=== PATIENT | female | born 1935 | race Caucasian/White ===

== ENCOUNTER 2016-06-24 20:31 | Inpatient (IN) ==
[2016-06-24 21:06] LABS: MANUAL DIFF NEEDED? NO
[2016-06-24 21:13] LABS: BASO% 0.6 % (0.0-0.8); EOS# 0.15 X1000 (0.0-0.7); EOS% 2.3 % (0.0-10.0); HEMATOCRIT 28.4 % (37.0-47.0); HEMOGLOBIN 9.3 g/dL (12.0-16.0); IMM GRAN# 0.02 X1000 (0.0-0.04); IMM GRAN% 0.3 % (0.0-0.5); LYMPH# 2.14 X1000 (1.2-3.4); LYMPH% 33.1 % (20.5-51.1); MCH 31.5 PG (27-31); MCHC 32.7 g/dL (33-37); MCV 96.3 FL (81-99); MONO# 0.55 X1000 (0.11-0.59); MONO% 8.5 % (1.7-9.3); MPV 13.1 FL (7.4-10.4); NEUT% 55.2 % (42.2-75.2); PLT 209 X1000 (130-400); RBC 2.95 XMIL (4.2-5.4)
[2016-06-24 21:32] LABS: ALBUMIN 3.3 g/dL (3.5-5.0); MAGNESIUM 2.3 mg/dL (1.5-2.7); POTASSIUM 4.2 mmol/L (3.5-5.1); TOTAL BILIRUBIN 0.3 mg/dL (0.20-1.00); TOTAL PROTEIN 6.2 g/dL (6.3-8.3)
[2016-06-25] MEDS ORDERED: NS 1,000 ML IV ONE (00:38)
--- NOTE | 2016-06-25 05:56 | EKG Report ---
Test Performed on : 06/24/2016 8:50:00 PM Test Reason : near syncope Blood Pressure : / mmHG Vent. Rate : 088 BPM Atrial Rate : 088 BPM P-R Int : 150 ms QRS Dur : 108 ms QT Int : 374 ms P-R-T Axes : 060 -57 089 degrees QTc Int : 452 ms Normal sinus rhythm. Left axis deviation Left ventricular hypertrophy with repolarization abnormality Abnormal ECG When compared with ECG of 24-JUN-2015 12:01, No significant change was found Unconfirmed Result
[2016-06-25 07:39] LABS: HEMATOCRIT 24.5 % (37.0-47.0); MCH 31.4 PG (27-31); MCHC 32.7 g/dL (33-37); MCV 96.1 FL (81-99); MPV 12.7 FL (7.4-10.4); RBC 2.55 XMIL (4.2-5.4)
[2016-06-25 07:57] LABS: ALBUMIN 3.1 g/dL (3.5-5.0); CALCIUM 8.6 mg/dL (8.8-10.2); MAGNESIUM 2.1 mg/dL (1.5-2.7); POTASSIUM 5.3 mmol/L (3.5-5.1); TOTAL BILIRUBIN 0.3 mg/dL (0.20-1.00); TOTAL PROTEIN 5.8 g/dL (6.3-8.3)
[2016-06-25] MEDS ORDERED: PROTONIX PO SCH (08:00)
--- NOTE | 2016-06-25 08:24 | HISTORY AND PHYSICAL ---
CHIEF COMPLAINT: Nausea, shortness of breath. HISTORY OF PRESENT ILLNESS: The patient is an 80-year-old female who unfortunately is a very difficult historian. She has a granddaughter in the room who is of little assistance. It appears that Ms. Feliciano has been having increased work of breathing and increased shortness of breath. Denies any cough or congestion. States that she has felt lightheaded, felt as though she was going to pass out. It does not appear that she has had any fevers or chills. She denies any cough, denies any vomiting, but has been nauseated at times. States that she would get short of breath and could not breathe. ALLERGIES: No known drug allergies. MEDICATIONS: Pravachol 80, diltiazem 240, TriCor 145, [place] p.r.n., iron, Synthroid 25, lisinopril 40, Evista 60, vitamin B, doxepin 50 every night at bedtime, Klonopin 1, Protonix 40, Carafate. REVIEW OF SYSTEMS: She has apparently had a history of blood loss, although the chart notes that she has had a workup in the past that could not locate the cause. Therefore, she is on Protonix, Carafate, etc. She has had increased shortness of breath, but denies any fevers or chills. She has had no real cough. She felt as though she was going to pass out, but did not. Denies any recurrent dizziness. Denies any headaches, blurred vision, change in vision. Denies any focalized numbness, tingling, weakness. Denies any GI or issues. PAST MEDICAL HISTORY: Hypertension, hyperlipidemia, COPD, history of kidney disease, history of anemia with no current source, osteoporosis, hypothyroidism, hypertension, high cholesterol. FAMILY HISTORY: Noncontributory. SOCIAL HISTORY: The patient lives at home. She is cared for by her family. She does not smoke or drink. PHYSICAL EXAMINATION: Vital signs: Temperature 97 degrees, pulse 93, respiratory 24, blood pressure 91/51. ASSESSMENT: 1. Acute on chronic renal failure. Serum creatinine 2.1. Her most recent on the chart was 1 to 1.6 in June 2015. 2. Volume depletion with an elevated BUN and creatinine. 3. History of nausea, but no recent emesis. 4. Anemia. Hemoglobin and hematocrit are slightly less after intravenous fluids, down to 8. Uncertain if she is having bleeding. We will continue to Hemoccult her stools. 5. Hypertension. 6. High cholesterol. 7. Syncope. PLAN: We will continue IV fluids, Hemoccult her stools, and continue to follow. Her blood pressures initially when she presented to the ER were 89/50; currently, they are much better after having received IV fluid bolus to 116/67 to 127/58. We will continue IV fluids. We will advance her diet. Restart her home medications. We will hold her current blood pressure medicines until her blood pressures increase. Also, we will hold her lisinopril, as this could be causing her acute renal insufficiency with dehydration. cc: Dylon Bolden MD
--- NOTE | 2016-06-25 09:40 | Diag Imaging Result Document ---
PROCEDURE NAME: XRAY HIP UNILATERAL LT - 06/25/2016 LEFT HIP, 3 VIEWS: COMPARISON: 03/19/2015. FINDINGS: There is no fracture or dislocation identified. There is no other acute abnormality identified. IMPRESSION: No evidence of fracture or dislocation.
--- NOTE | 2016-06-25 09:41 | Diag Imaging Result Document ---
PROCEDURE NAME: XRAY HIP UNILATERAL RT - 06/25/2016 RIGHT HIP, 2 VIEWS: FINDINGS: There is no fracture or dislocation identified. There is no other acute abnormality identified. IMPRESSION: No evidence of fracture or dislocation.
[2016-06-25] MEDS ORDERED: MYLICON PO PRN (17:31)
[2016-06-25] MEDS: NS 1,000 ML IV SCH (18:00)
[2016-06-25] MEDS ORDERED: DUONEB (A & A) INH PRN (18:32)
[2016-06-25] MEDS ORDERED: ZOFRAN IV PRN ×2 (18:32→19:48)
[2016-06-25] MEDS ORDERED: XANAX PO PRN (18:33)
[2016-06-25] MEDS ORDERED: ATIVAN IV ONE (18:36)
[2016-06-25 19:18] LABS: CALCIUM 8.4 mg/dL (8.8-10.2); POTASSIUM 4.5 mmol/L (3.5-5.1)
[2016-06-25 20:41] LABS: OCCULT BLOOD 1 POSITIVE (NEGATIVE)
[2016-06-25] MEDS: PROTONIX IV SCH (20:43)
[2016-06-25] MEDS: SOLU-MEDROL IV SCH (20:43)
[2016-06-25] MEDS: ROCEPHIN 1 GM/NS 1 GM/50 ML IVPB IV SCH (20:43)
[2016-06-25 21:24] LABS: HEMATOCRIT 21.9 % (37.0-47.0); HEMOGLOBIN 7.2 g/dL (12.0-16.0)
[2016-06-25 22:25] LABS: URINE CULTURE PL NEEDED? NO
[2016-06-25 22:44] LABS: BILIRUBIN URINE NEGATIVE (NEGATIVE); BLOOD URINE NEGATIVE (NEGATIVE); CLARITY CLEAR (CLEAR); COLOR YELLOW; GLUCOSE URINE NEGATIVE (NEGATIVE); LEUKOCYTES URINE NEGATIVE (NEGATIVE); NITRITE URINE NEGATIVE (NEGATIVE); PROTEIN URINE NEGATIVE (NEGATIVE); UROBILINOGEN URINE NORMAL
[2016-06-25 22:45] LABS: URINE SOURCE CATH
[2016-06-25 22:46] LABS: URINE EPITHELIAL CELLS <10 /HPF (<10); URINE RBC <10 /HPF (<10); URINE WBC <10 /HPF (<10)
--- NOTE | 2016-06-25 23:41 | Diag Imaging Result Document ---
PROCEDURE NAME: CHEST-1 VIEW - 06/25/2016 SINGLE FRONTAL RADIOGRAPH OF THE CHEST: COMPARISON: 06/24/2015. FINDINGS: Linear scarring at the lung bases is unchanged. No new consolidations identified. Cardiac silhouette is stable. IMPRESSION: Stable chest.
[2016-06-26] MEDS: SOLU-MEDROL IV SCH ×3 (04:45→20:26)
[2016-06-26] MEDS: NS 1,000 ML IV SCH ×2 (06:15→15:21)
[2016-06-26 06:41] LABS: HEMATOCRIT 31.7 % (37.0-47.0); HEMOGLOBIN 10.6 g/dL (12.0-16.0); MCH 30.5 PG (27-31); MCHC 33.4 g/dL (33-37); MCV 91.4 FL (81-99); MPV 12.7 FL (7.4-10.4); RBC 3.47 XMIL (4.2-5.4)
[2016-06-26 06:56] LABS: ALBUMIN 3.1 g/dL (3.5-5.0); CALCIUM 8.4 mg/dL (8.8-10.2); TOTAL BILIRUBIN 0.7 mg/dL (0.20-1.00)
[2016-06-26] MEDS: PROTONIX IV SCH (10:05)
--- NOTE | 2016-06-26 12:02 | PROGRESS NOTE ---
DATE: 06/26/2016 SUBJECTIVE: The patient notes that she is feeling much better this morning. States that she has not had any cough, congestion. Notes that her abdomen is much better this morning. Denies any pain. Denies any blood in her urine or stool. OBJECTIVE: Vital Signs: On physical, temp 98, pulse 106, respiratory 23, BP 150/77, satting 96% on 2 L. General: Patient is awake, alert, oriented. She is currently in no real respiratory distress. She is pleasant to talk with. She is an elderly female who is stable. HEENT: Normocephalic. Neck: Supple. CV: Regular rate. Chest: Clear. Abdomen: Soft. Positive bowel sounds. No masses. Nontender. No hepatosplenomegaly. Extremities: Moves all extremities. Neurologic: No changes. LABS: Hemoglobin and hematocrit 10 and 31 after two units of transfusion; it was 7.2 and 21 prior to this. BUN is still elevated at 54. Creatinine continues to improve with IV fluids down to 1.4. Glucose 121 and albumin 3.1. ASSESSMENT: 1. Hemoccult-positive stool with an acute bleed. Patient's hemoglobin and hematocrit dropped last night with an elevation in her BUN. Creatinine continued to improve. Therefore, we rechecked her hemoglobin and hematocrit again last night and it certainly does appear as though she is having a gastrointestinal bleed. Her Hemoccult was positive. She was therefore transfused 2 units and moved to the intensive care unit. 2. Acute renal failure. Serum creatinine continues to improve from 2.1 down to 1.4. 3. Abdominal pain improved this morning. Computed tomography is pending. 4. Mild protein calorie malnutrition. 5. Volume depletion with noted elevated creatinine, improving with intravenous fluids. 6. Hypertension. 7. Syncope, resolved. 8. High cholesterol. PLAN: As noted above, patient is back to her baseline creatinine of 1.4. She does have chronic renal failure. Her BUN, however, continued to climb and, as noted above, she was noted to have a GI bleed with heme-positive stool. She was typed and crossed, transfused 2 units. Her hemoglobin and hematocrit has remained stable since then. We will check a CT of the abdomen. She certainly will need endoscopy at some point. Currently she is stable. We will continue to follow. Further orders as needed. TIME SPENT: 40 minutes spent in total care. cc: Dylon Bolden MD
--- NOTE | 2016-06-26 12:27 | Diag Imaging Result Document ---
PROCEDURE NAME: ARMAAN ABDOMEN - 06/25/2016 SUPINE RADIOGRAPH OF THE ABDOMEN AND PELVIS, 2 VIEWS: COMPARISON: 01/24/2013. FINDINGS: There are nonspecific bowel gas and stool patterns. There is probably a combination of colonic gas and a few patchy mildly distended loops of small bowel. This is nonspecific. There is nothing that would necessarily indicate obstruction. No definite large volume free abdominal gas is appreciated given the limitations of a supine radiograph. IMPRESSION: Nonspecific abdomen.
--- NOTE | 2016-06-26 14:11 | Diag Imaging Result Document ---
PROCEDURE NAME: CT ABD/PELVIS ORAL CONTR ONLY - 06/26/2016 CT ABDOMEN AND PELVIS WITH ORAL CONTRAST ONLY: COMPARISON: 06/25/2015. FINDINGS: There is a calcified granuloma at the anterior right lung base. There is a stable 9.5 mm noncalcified nodule in the right lower lobe. There is bibasilar mild scarring versus subsegmental atelectasis. There are calcified granulomata in the spleen. The superior dome of the liver is out of the field of view on this study. There has been a previous cholecystectomy. The antrum and pyloric region of the stomach appeared to be somewhat thickened. This could indicate gastritis. It may also be simply due to incomplete distention of the stomach. The course of the small bowel appears to have changed as compared to the previous study. Just before the duodenum crosses the midline, it doubles back to the right side of the abdomen. Although this segment and the adjacent segments of small bowel are not distended, there is distention more distally involving multiple loops of small bowel. The distention is moderate in severity, and there are air-fluid levels. Partial small bowel obstruction should be considered. No significant small bowel wall thickening is identified. The distention may also represent functional ileus. There is a Lazaro catheter in the urinary bladder. The bladder is nondistended. There are a few colonic diverticula, but no evidence of diverticulitis. The colon does not appear to be significantly distended. There is a stable 2 mm left ovarian cyst. The kidneys are essentially unremarkable with no hydronephrosis. There is extensive aortic atherosclerotic calcification with stable infrarenal sub- aneurysmal ectasia. No free abdominal gas is appreciated. No focal inflammatory changes are identified. IMPRESSION: 1. Thickening of the gastric wall involving the antrum and pylorus of the stomach. Consider gastritis. This may also be due to incomplete distention, however. 2. Aberrant course of the duodenum and jejunum not seen on the previous study with a majority of the proximal small bowel on the right side of the abdomen. 3. Several moderately distended loops of small bowel that are nonspecific. Partial obstruction cannot completely be excluded. 4. Other incidental/nonacute findings detailed above. [facility]
[2016-06-26 17:04] LABS: HEMATOCRIT 33.1 % (37.0-47.0); HEMOGLOBIN 11.4 g/dL (12.0-16.0); MCH 31.7 PG (27-31); MCHC 34.4 g/dL (33-37); MCV 91.9 FL (81-99); MPV 12.6 FL (7.4-10.4); RBC 3.6 XMIL (4.2-5.4)
[2016-06-26 17:22] LABS: ALBUMIN 3.5 g/dL (3.5-5.0); CALCIUM 8.4 mg/dL (8.8-10.2); TOTAL BILIRUBIN 0.6 mg/dL (0.20-1.00); TOTAL PROTEIN 6.1 g/dL (6.3-8.3)
[2016-06-26] MEDS: KLONOPIN PO SCH (18:36)
[2016-06-26] MEDS: PROTONIX 80 MG in NS 80 ML IV SCH (19:03)
[2016-06-26] MEDS: ROCEPHIN 1 GM/NS 1 GM/50 ML IVPB IV SCH (20:26)
[2016-06-26] MEDS: CARAFATE LIQUID PO SCH (20:26)
[2016-06-27] MEDS: CARAFATE LIQUID PO SCH ×5 (02:55→21:11)
[2016-06-27] MEDS: SOLU-MEDROL IV SCH ×3 (03:46→21:11)
[2016-06-27] MEDS: PROTONIX 80 MG in NS 80 ML IV SCH ×2 (03:53→14:27)
[2016-06-27 06:53] LABS: ALBUMIN 3.1 g/dL (3.5-5.0); POTASSIUM 4.2 mmol/L (3.5-5.1); TOTAL BILIRUBIN 0.46 mg/dL (0.20-1.00); TOTAL PROTEIN 5.9 g/dL (6.3-8.3)
[2016-06-27 06:55] LABS: HEMATOCRIT 30.5 % (37.0-47.0); HEMOGLOBIN 10.3 g/dL (12.0-16.0); MCH 31.2 PG (27-31); MCHC 33.8 g/dL (33-37); MCV 92.4 FL (81-99); MPV 12.5 FL (7.4-10.4); RBC 3.3 XMIL (4.2-5.4)
[2016-06-27] MEDS: NS 1,000 ML IV SCH ×3 (06:55→18:07)
--- NOTE | 2016-06-27 07:53 | CONSULTATION ---
DATE OF CONSULTATION: 06/27/2016 REASON FOR CONSULTATION: Gastrointestinal bleeding. HISTORY OF PRESENT ILLNESS: An 80-year-old, female, who is a difficult historian, who initially presented with nausea and shortness of breath to [facility]. She has a history of gastrointestinal bleeding and it is found that she also feels lightheaded. She was found to be anemic. It was also found that she had a positive Hemoccult. She had previously been scoped last year, both with upper and lower endoscopy, and found no obvious source so there was concern that she might have a small bowel source. She did have a CT scan that showed potential for small-bowel obstruction on this admission, but no obvious masses were appreciated. GI has been consulted and they have evaluated the patient. Their plan on doing potential upper endoscopy on Tuesday. I was asked to weigh an opinion. The patient does not give me much more information at this time, but overall clinical picture has improved. She was given blood yesterday at [facility]. PAST MEDICAL HISTORY: Includes hypertension, hyperlipidemia, chronic obstructive pulmonary disease, history of chronic kidney disease, history of chronic anemia, history of gastrointestinal bleed, osteoporosis, and hypothyroidism. PAST SURGICAL HISTORY: Includes previous colonoscopies. Endometrial surgery and cholecystectomy. SOCIAL HISTORY: Patient lives at home. Cared for by family. Does not smoke or drink alcohol. FAMILY HISTORY: Reviewed with patient, but noncontributory. REVIEW OF SYSTEMS: A full 10 point review of systems obtained, and is negative unless as specified in history of present illness. ALLERGIES: None. HOME MEDICATIONS: Include Pravachol, diltiazem, TriCor, [place], Synthroid, lisinopril, Evista, vitamin D, doxepin, Klonopin, Protonix, and Carafate. PHYSICAL EXAMINATION: Vital Signs: The patient is currently afebrile. Her vital signs are stable. General Examination: No acute distress. Resting comfortably in bed. HEENT: Normocephalic, atraumatic. Pupils equal, round, reactive to light. Mucous membranes moist. Oropharynx benign. Neck: Supple. Trachea midline. Cardiovascular: Regular rate and rhythm. Lungs: Grossly clear. Abdomen: Soft, nontender, nondistended at this time. Extremities: Moves all extremities well. Neurologic: Grossly intact. Skin: No signs of jaundice. Vascular: All extremities perfused. LABORATORY: Labs from yesterday afternoon white blood cell count is 15, hematocrit is 33, platelet count 151,000. BUN 57, creatinine 1.1. CT scan independently reviewed and radiology report reviewed. ASSESSMENT/PLAN: An 80-year-old, female, with a potential gastrointestinal bleed. Patient has been anemic, although her MCV does not seem to suggest an iron deficiency anemia. She does have a slightly elevated BUN, which could be seen in gastrointestinal bleed. She has Hemoccult stool noted. Given her previous attempts to try to localize the bleed with no success, would still like to repeated esophagogastroduodenoscopy and possible colonoscopy to evaluate for possible source prior to any kind of surgical intervention. Her CT scan does not have any masses noted, but there is concern that she might have a small bowel mass by report from the daughter who is in the room. She did have upper endoscopy last year that showed no obvious masses. We will continue to follow with you and keep the patient resuscitated. If anything changes, may need to consider surgical intervention earlier, but at this time she is not actively bleeding so it would be hard to localize on any further imaging study. cc: Wilfrido Lucas MD MTDD
[2016-06-27] MEDS: KLONOPIN PO SCH (12:22)
--- NOTE | 2016-06-27 14:00 | PROGRESS NOTE ---
DATE: 06/27/2016 SUBJECTIVE: Today Ms. Feliciano refers to be doing a lot better. According to Ms. Feliciano she has been feeling extremely weak and droopy for the past couple days. She thought she was extremely dehydrated. It reached a point where she could not even help herself to walk around and that is the motive of presenting to the emergency department. Initially patient went to [facility], was worked up, found to be anemic and was transferred over here for further medical care. Today she refers to be doing fine. OBJECTIVE: Vital signs: Blood pressure is 208/80, pulse of 87, respirations 18, temperature is 98.0 degrees. General: Ms. Feliciano is an 80-year-old female. She was in bed, did not seem to be in any remarkable distress. HEENT: Mucosa is pink and moist. Anicteric. Acyanotic. Neck: Supple. Chest: Good air entry bilaterally. No crepitations. No rhonchi. Cardiovascular: Regular rate and rhythm. No murmurs, no rubs. No gallops. Abdomen: Soft. Mildly tender in the epigastrium. Bowel sounds are present. Extremities: No pedal edema. [employer]: Patient is awake, alert, oriented x4. There is no focal neurological deficit. LABORATORY DATA: WBC is 13.12, hemoglobin is 10.3, platelet count of 154,000. Chemistry is reviewed. Sodium is 143, potassium is 4.2, chloride is 113, gap of 19, BUN is 46, creatinine is 1.2. Patient Hemoccult is positive. All blood cultures have been negative. The patient is status post 2 PRBC transfusion. ASSESSMENT: 1. Anemia with positive Hemoccult likely due to gastrointestinal bleed. Patient is status post 2 packed red blood cell transfusion. From review of patient records she was actually here in [facility] and discharged just about a year ago so discharged on 06/27/2015 with similar presentation. On that occasion patient had EGD, colonoscopy by Dr. Biswas. The EGD was pretty much unremarkable. However the colonoscopy on 06/25/2015 did reveal dark stool throughout the colon but no lesion was actually found and there was a suspicion of a small bowel bleed so GI has been reconsulted and surgery has been reconsulted. I think patient will definitely need to get EGD and colonoscopy again. If those prove to be negative then will would not have to study the small bowel. Patient hemoglobin and hematocrit this morning is stable. 2. Acute kidney injury. This is improving. 3. Hyperchloremic acidemia. I think this is due to the IV fluids. We will change this to half saline. 4. Uncontrolled hypertension. We will readjust patient medications. 5. Syncope at home likely due to volume depletion and anemia. This is improved. 6. CT scan finding for aberrant course of duodenum and jejunum. Not sure if this is indicative of partial small bowel or it is a congenital abnormality. Will continue to follow this. Surgery has already evaluated the patient. PLAN: So in general I think Ms. Feliciano is relatively stable now. She has a consult to see both surgery and GI. I think she will need to be re-scoped again. If that is negative then will need to look about either video capsule or push enteroscopy or bleeding scan to look for the source of the bleeding the small bowel. cc: Juan Loaiza MD
--- NOTE | 2016-06-27 17:53 | PROGRESS NOTE ---
DATE: 06/27/2016 SUBJECTIVE: Patient is resting in bed. She had 1 dark stool this morning. She denies any nausea, vomiting, abdominal pain. She was able to take some liquid diet this morning. She was seen by Dr. Lucas and our plan is to evaluate her upper GI tract and lower GI tract and she may need exploratory laparotomy versus laparoscopy as there is a question of small bowel partial obstruction which could be linked to her chronic blood-loss anemia. According to the patient she had a video capsule endoscopy done a year ago with Dr. Phelps and it was negative. OBJECTIVE: Vital signs: Temperature 98.4 degrees, pulse rate of 99, respiratory rate 18, blood pressure 157/99, saturating 98% on room air. Body weight of 136 pounds. General: Thinly built, lying in bed, in no acute. HEENT: Pale conjunctivae. No icterus. Neck: Supple. Abdomen: Soft, nontender, nondistended. Bowel sounds noted. No rebound or guarding. Extremities: No cyanosis, clubbing, and edema. Neurologic: She is alert, awake, oriented. LABS: Hemoglobin and hematocrit are 10.3 and 13.5, white count 13.1, platelet count of 154,000, MCV of 92.4. Sodium 142, potassium 4.2, chloride 113, bicarb of 19, anion gap 11, BUN of 46, creatinine 1.1, glucose of 112, calcium is 8, total bilirubin is 0.46, AST 32, ALT 17, alkaline phosphatase 41, total protein 5.9, albumin of 3.1, lactate of 1.1. Stool occult was positive. IMPRESSION AND PLAN: 1. Melena and anemia: Patient is schedule for EGD tomorrow morning. She will be made NPO past midnight. She will continue on PPIs for now. 2. Anemia. Continue to watch and type and cross and transfuse to keep hematocrit more than 25%. 3. Partial small obstruction. Suspect small bowel lesion but at this moment patient is feeling better. We will keep her on clear liquid diet today. Dr. Lucas is on board and if her EGD and GI workup is unrevealing then he may elect to do laparoscopy versus exploratory laparotomy. 4. Hypertension. Being managed the primary team. 5. Syncope at home which is likely secondary to anemia and volume depletion. She is feeling better for now. 6. Above plan of care was discussed with the patient and all questions answered. cc: MD Wilfrido Agosto MD Gregory S. Cheatham, MD Raphael K. Quansah, MD MTDD
[2016-06-27] MEDS: ROCEPHIN 1 GM/NS 1 GM/50 ML IVPB IV SCH (21:11)
[2016-06-28] MEDS: PROTONIX 80 MG in NS 80 ML IV SCH ×4 (01:29→21:50)
[2016-06-28] MEDS: CARAFATE LIQUID PO SCH ×4 (03:01→20:02)
[2016-06-28] MEDS: SOLU-MEDROL IV SCH ×3 (03:28→20:02)
--- NOTE | 2016-06-28 04:07 | CONSULTATION ---
DATE OF CONSULTATION: 06/26/2016 ATTENDING PHYSICIAN: Dr. Bolden. PRIMARY CARE DOCTOR: Dr. Lockett. REASON FOR CONSULTATION: Anemia, small-bowel obstruction. HISTORY OF PRESENT ILLNESS: Ms. Feliciano is an 80-year-old female who was admitted on 06/25/2016 with nausea and shortness of breath. She was diagnosed with pneumonia. She has a known history of COPD. She has quit smoking many years ago per the patient. She also felt lightheaded and was going to pass out. During the hospital admission, she was noted to have volume depletion, dehydration, nausea, acute and chronic renal failure, and dropping hematocrit. She had soft, black, tarry stools noted today and her hematocrit also dropped from 28.4 down to 21.9, and was given 2 units of blood transfusion and the repeat hematocrit went up to 33.1. The patient denies any nausea, vomiting, vomiting blood. She has had an EGD and colonoscopy done in 2016 which showed evidence of possible small bowel bleed. The EGD only showed mild gastritis and the colonoscopy showed dark stool throughout the colon and internal hemorrhoids. The patient denies any gum bleeding, nose bleeding, or blood in the urine. PAST MEDICAL HISTORY: 1. Anemia. 2. GI bleed. 3. Constipation. 4. Reflux disease. 5. Hyperlipidemia. 6. Hypothyroidism. 7. Hypertension. 8. Anxiety. 9. Osteoporosis. 10. Kidney disease. 11. Chronic anemia, on iron. ALLERGIES: No known drug allergies. HOME MEDICATION LIST: Pravachol, diltiazem, TriCor, [place], Synthroid, lisinopril, Evista, vitamin B, doxepin, Klonopin, Protonix, Carafate. PAST SURGICAL HISTORY: EGD and colonoscopy in 2016. SOCIAL HISTORY: Patient lives at home. She is cared for by her family, her granddaughter. She is cared for at home. She denies any history of current smoking or alcohol. FAMILY HISTORY: Noncontributory. REVIEW OF SYSTEMS: The patient denies any fevers, rigors, chills, chest pain, or shortness of breath at this time, although on admission, she was short of breath, and she also had dehydration and near-syncope. She denies any signs of vomiting, vomiting blood, or passing bright red blood in the stools, although on admission, she did have some dark soft stools noted today and a drop in hematocrit. She does have history of arthritis. She denies any neurological complaints today, although on admission, she had a near-syncope. HOSPITAL MEDICATIONS: Her medications in the hospital include Tylenol, albuterol/ipratropium, clonazepam, methylprednisolone 40 mg IV q.8 hours, sodium chloride, Zofran, Protonix IV b.i.d., Protonix drip, simethicone, sucralfate 1 g every 6 hours, lorazepam 0.5 mg IV now. The patient is currently NPO. PHYSICAL EXAMINATION: Vital Signs: Temperature of 97.6 degrees, pulse rate of 107, respiratory rate 18, blood pressure 192/85, saturating 97% on room air. Body weight of 136 pounds, BMI 22 kg. General Appearance: Moderately built, moderately nourished, lying in bed, in no acute distress. HEENT: Pale conjunctivae. No icterus. Pupils equal, react to light. Neck: Supple. Chest: Decreased breath sounds. CV: Tachycardic at times. Abdomen: Soft, nontender , nondistended. Bowel sounds heard. No rebound. No guarding. Extremities: No cyanosis, clubbing. Neurologic: She is alert, awake, oriented x3. LABS: Hemoglobin and hematocrit 11.4 and 33.1, white count of 15.3, platelet count of 151,000, MCV of 91.9. Sodium of 139, potassium of 4, chloride of 100, bicarb of 17, anion gap of 14, BUN of 57, creatinine 1.1, glucose of 113, calcium is 8.4. Total bilirubin is 0.6, AST 36, ALT 18, alkaline phosphatase 44, total protein 6.1, albumin of 3.5, lactate of 0.7. Urinalysis is clear. Stool occult blood is positive. She had imaging in the form of a CT of the abdomen that was done on 06/26/2016 with oral contrast only which showed a stable, 9.5 mm, noncalcified nodule in the right lower base. Bibasilar mild scarring versus subsegmental atelectasis. Calcified granuloma in the spleen. Superior dome of the liver is out of the field of view. Status post cholecystectomy. Antrum and pyloric region of the stomach appear to be somewhat thickened. This could indicate gastritis. The course of small bowel appears to have changed as compared to previous study. Just before the duodenum crosses the midline, it doubles back to the right side of the abdomen. There was also evidence of distal distention in multiple loops of small bowel. The distention is moderate in severity and there are air/fluid levels. Partial small bowel obstruction should be considered. No significant small bowel wall thickening is identified. The distention may also represent possible ileus. There were colonic diverticula but no evidence of diverticulitis. A 2 cm left ovarian cyst was noted. Extensive aortic atherosclerotic calcifications with a stable infrarenal sub-aneurysmal ectasia was noted. No free air was noted. IMPRESSION AND PLAN: 1. Anemia. 2. Melena. 3. Gastritis on CT scan. 4. Questionable partial small obstruction. 5. Previous esophagogastroduodenoscopy and colonoscopy done in June of 2015 had shown gastritis and melena throughout the colon and diverticulosis, and there was suspicion of small bowel bleed at that time even. In the setting of the new CT scan findings of a possibility of moderate distention of distal small bowel loops, I suspect a small bowel partial obstruction maybe by a mass which could be intermittently bleeding and causing her melena. RECOMMENDATIONS: 1. In this regard, we will keep the patient on a clear liquid diet. 2. We will keep an eye on hemoglobin and hematocrit, and type and cross, transfuse to keep the hematocrit more than 27%. 3. We will start her on a Protonix drip. 4. Patient will hold any kind of NSAIDs. 5. We will call consult general surgery in case they have to do a laparoscopy to evaluate the small bowel segment causing partial obstruction which may be the source of patient's small bowel bleed in the recent past. She has been chronically anemic and requiring iron supplementation and blood transfusions, and having intermittent GI bleeding episodes over the last 1 year. 6. We will continue to follow closely and we will schedule for EGD on Tuesday morning or sooner if she continues to drop hematocrit. 7. The above plan was discussed with the patient and the nurse, and all questions were answered. cc: MD Dylon Agosto MD Alexis R. Penot, MD Dr. Reddy MTDD
--- NOTE | 2016-06-28 05:59 | PROGRESS NOTE ---
DATE: 06/28/2016 SUBJECTIVE: No major issues. Reviewed notes from other physicians. OBJECTIVE: Vital Signs: Patient is currently afebrile. Her vital signs are stable. General: No acute distress. Resting comfortably in bed. Cardiovascular: Regular rate and rhythm. Lungs: Grossly clear. Abdomen: Soft, nontender, nondistended. Extremities: Moves all extremities well. LABORATORY: Currently pending from this morning. ASSESSMENT/PLAN: An 80-year-old female with possible gastrointestinal bleed. 1. Possible gastrointestinal bleed. At this time Gastroenterology is following. She has a plan for an esophagogastroduodenoscopy in the morning. At this time no exact etiology noted for her gastrointestinal bleed. May recommend doing colonoscopy if esophagogastroduodenoscopy is normal. If both tests are normal, may need to consider exploratory laparotomy, but will follow with you. Other medical issues to be handled by the hospitalist service. cc: Wilfrido Lucas MD
[2016-06-28 06:41] LABS: POTASSIUM 3.9 mmol/L (3.5-5.1)
[2016-06-28 06:42] LABS: HEMATOCRIT 30.7 % (37.0-47.0); HEMOGLOBIN 10.3 g/dL (12.0-16.0); LYMPH# 0.56 X1000 (1.2-3.4); LYMPH% 5.4 % (20.5-51.1); MANUAL DIFF NEEDED? YES; MCH 31.3 PG (27-31); MCHC 33.6 g/dL (33-37); MCV 93.3 FL (81-99); MONO# 0.22 X1000 (0.11-0.59); MONO% 2.1 % (1.7-9.3); MPV 13.1 FL (7.4-10.4); NEUT% 92.5 % (42.2-75.2); PLT 166 X1000 (130-400); RBC 3.29 XMIL (4.2-5.4)
[2016-06-28 07:57] LABS: LYMPHS 4 % (21-51); MONO 2 % (1-9)
[2016-06-28 07:59] LABS: HYPOCHROM 1+
[2016-06-28] MEDS ORDERED: EPINEPHRINE SYRINGE ONE (08:44)
[2016-06-28] MEDS ORDERED: DIPRIVAN 1% ONE (08:54)
[2016-06-28] MEDS ORDERED: EXTENSION SET 32 IN 4522 ONE (09:20)
[2016-06-28] MEDS ORDERED: ANESTHESIA PB SET 88 IN 5742 ONE (09:20)
[2016-06-28] MEDS: KLONOPIN PO SCH (10:01)
[2016-06-28] MEDS: D5 1/2 NS 1,000 ML IV SCH (10:06)
[2016-06-28] MEDS ORDERED: GOLYTELY PO ONE (12:00)
--- NOTE | 2016-06-28 16:29 | OPERATIVE NOTE ---
PROCEDURE DATE: 06/28/2016 ATTENDING PHYSICIAN: Jacob Vail MD PROCEDURE: Esophagogastroscopy. PREOPERATIVE DIAGNOSES: 1. Melena, which started about a week ago, soft black stools. 2. Anemia required 2 units of blood transfused. 3. She has history of chronic anemia on chronic iron treatment. 4. Previous esophagogastroduodenoscopy/colonoscopy in 2016, showed no source of active bleeding, and at that time was thought to be a small bowel source and on this admission , she presented very similarly with presyncope and melena. A CT scan showed a possibility of partial small obstruction with possible lesion in the small bowel, which is being evaluated by Dr. Lucas. POSTOPERATIVE DIAGNOSES: 1. Normal esophagus in the proximal and middle third. 2. Mild esophagitis in the distal esophagus. 3. Z-line was at 37 cm. 4. Schatzki's ring at the gastroesophageal junction. 5. Hiatal hernia 3 cm. 6. Gastritis in the body and antrum, mild type. 7. Normal fundus, cardia, incisura. 8. Normal duodenal bulb and second and third portion of duodenum. 9. No evidence of active bleeding, fresh or old blood in the entire esophagogastroduodenoscopy. ESTIMATED BLOOD LOSS: None. COMPLICATIONS: None. ANESTHESIA: Monitored anesthesia care. SPECIMEN: None. DESCRIPTION OF PROCEDURE: After informed consent, the patient explained the risks, benefits, indications, alternatives, the patient was prepared for EGD. The patient was brought to the OR. She was turned in the left lateral position. A bite block was placed in patient 's mouth. After adequate monitored anesthesia care, the upper scope was introduced, it was traversed all the way to the third portion of duodenum. The esophagus was normal. The proximal middle 3rd distal esophagus showed mild erythema suggesting mild esophagitis. The Z line was visualized at 37 cm. There was evidence of a Schatzki ring, nonobstructive type at the GE junction. There was evidence of 3 cm sliding hiatal hernia. There was no evidence of any bleeding lesion in the hiatal sac. The scope was withdrawn in the stomach showed evidence of mild erythema in the body and antrum suggesting mild gastritis. There was no evidence of any ulcers, erosions, or any kind of bleeding lesions noted. Retroflexion in the stomach revealed normal fundus, cardia, incisura. The scope was advanced to the duodenum, which was normal in the duodenal bulb and second and third portion of duodenum. There was no evidence of any active bleeding, fresh, or old blood noted in the entire EGD. The air was aspirated as the scope was withdrawn. The patient tolerated the procedure and currently monitored in the OR in stable condition. I discussed the findings with the patient on waking up. All questions answered. RECOMMENDATIONS: 1. The patient will need a colonoscopy tomorrow. Patient will be on clear liquid diet. NPO past midnight and start on GoLYTELY at 12 noon noted. 2. If the colonoscopy is negative, the patient may need laparoscopy/exploratory laparoscopy per the surgical team to evaluate the small bowel lesion, which was seen on CT scan. Of note, the patient also had video capsule endoscopy done a year ago by Dr. Phelps, which was unrevealing. 3. The above plan was discussed with the patient and all questions answered. cc: MD Jacob Agosto MD Raphael K. Quansah, MD MTDD
[2016-06-28] MEDS: ROCEPHIN 1 GM/NS 1 GM/50 ML IVPB IV SCH (20:02)
--- NOTE | 2016-06-28 20:24 | PROGRESS NOTE ---
DATE: 06/28/2016 SUBJECTIVE: Today, Ms. Feliciano refers to be doing a whole lot better. According to her, she still continues to have some dark stool. OBJECTIVE: Vital signs: Blood pressure is 169/88, pulse of 79, respirations 16, temperature 98.1 degrees. General: Ms. Feliciano is an 80-year-old female. She is in bed, not in any distress. HEENT: Mucosa is slightly pale. Anicteric and acyanotic. Neck: Supple. Chest: Good air entry bilateral. No crepitations. No rhonchi. Cardiovascular: Regular rate and rhythm. Abdomen: Soft. Mildly tender in the epigastrium. Bowel sounds are present. Extremities: No pedal edema. 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 There is no focal neurological deficit. LABORATORY DATA: WBC is 10.41, hemoglobin is 10.3, platelet count of 166,000. Chemistries reviewed. Completely unremarkable. Creatinine is down to 1.1. BUN is 30. DIAGNOSTICS: The EGD that was done today has shown mild esophagitis and Schatzki's ring in the gastroesophageal junction. No evidence of acute bleeding of fresh blood in the entire the EGD. ASSESSMENT: 1. Anemia with positive Hemoccult, likely gastrointestinal bleed. Patient is status post EGD which was not very revealing except for some Schatzki's ring and esophagitis. Patient is getting prepped for colonoscopy tomorrow. 2. Acute kidney injury. Creatinine has improved. 3. Hyperchloremic acidemia. We will continue with the D5. This is slightly improving. 4. Hypertension, controlled. 5. Syncope at home likely due to volume depletion and anemia. This has improved. 6. Computed tomography findings consistent with aberrant course of duodenum and jejunum likely possibly the cause of the gastrointestinal bleed. PLAN: In general, Ms. Feliciano has a gastrointestinal bleed. EGD was unrevealing. Colonoscopy is due tomorrow. Patient has had 2 packed red blood cell transfusions. Hemoglobin and hematocrit is now stable. If the colonoscopy is also nonrevealing, there is a plan for the surgeons to do a possible exploratory laparotomy. cc: Juan Loaiza MD
[2016-06-29] MEDS: SOLU-MEDROL IV SCH ×3 (03:33→22:25)
[2016-06-29] MEDS: CARAFATE LIQUID PO SCH ×5 (03:33→22:25)
[2016-06-29] MEDS: D5 1/2 NS 1,000 ML IV SCH ×3 (05:14→22:25)
[2016-06-29] MEDS ORDERED: FLEET ENEMA PR ONE (06:10)
[2016-06-29 06:17] LABS: HEMATOCRIT 27.6 % (37.0-47.0); HEMOGLOBIN 9.1 g/dL (12.0-16.0); LYMPH# 0.63 X1000 (1.2-3.4); LYMPH% 7.3 % (20.5-51.1); MANUAL DIFF NEEDED? YES; MCH 30.7 PG (27-31); MCV 93.2 FL (81-99); MONO# 0.47 X1000 (0.11-0.59); MONO% 5.5 % (1.7-9.3); MPV 13.3 FL (7.4-10.4); NEUT% 87.2 % (42.2-75.2); PLT 154 X1000 (130-400); RBC 2.96 XMIL (4.2-5.4)
[2016-06-29 06:33] LABS: ALBUMIN 2.6 g/dL (3.5-5.0); CALCIUM 7.7 mg/dL (8.8-10.2); POTASSIUM 3.6 mmol/L (3.5-5.1); TOTAL BILIRUBIN 0.32 mg/dL (0.20-1.00); TOTAL PROTEIN 4.7 g/dL (6.3-8.3)
--- NOTE | 2016-06-29 06:38 | PROGRESS NOTE ---
DATE: 06/29/2016 SUBJECTIVE: No major issues. I did review her EGD with Dr. Biswas. No obvious sources of bleeding noted on EGD. She is planned on the schedule to have a colonoscopy today by Dr. Biswas. OBJECTIVE: Vital Signs: Patient is currently afebrile. Her vital signs are stable. General Examination: No acute distress. Alert and oriented x3. HEENT: Normocephalic and atraumatic. Pupils are round, react to light. Mucous membranes moist. Oropharynx benign. Neck: Supple. Trachea midline. Cardiovascular: Regular rate and rhythm. Lungs: Grossly clear. Abdomen: Soft, nontender, nondistended. Extremities: Moves all extremities well. Neurologic: Grossly intact. Skin: No signs of jaundice. Vascular: All extremities perfused. Laboratory: Currently pending. ASSESSMENT/PLAN: An 80-year-old, female with possible gastrointestinal bleed. Possible gastrointestinal bleed. At this time, her upper endoscopy was normal. She has a colonoscopy scheduled for today. If there is no obvious source of bleeding on upper and lower endoscopy, the only possibilities at this time would be that she has a small intermittent bleeding that it is difficult to see on both upper and lower endoscopy or that she has a small bowel source for bleeding. If it persists, may need to consider exploratory laparotomy but given the intermittent nature of bleeding, this may be difficult to even localize it surgically. She probably does not have enough brisk bleeding to merit a bleeding study or a tagged red blood cell scan. We will continue to follow with you. We will follow up after the colonoscopy. cc: Wilfrido Lucas MD
[2016-06-29 06:39] LABS: BANDS 6 % (0-1); LYMPHS 6 % (21-51); MONO 4 % (1-9)
[2016-06-29] MEDS: PROTONIX 80 MG in NS 80 ML IV SCH ×2 (06:44→16:32)
[2016-06-29] MEDS: KLONOPIN PO SCH (09:47)
--- NOTE | 2016-06-29 09:56 | PROGRESS NOTE ---
DATE: 06/29/2016 SUBJECTIVE: Presented with nausea, shortness of breath. This is an 80-year-old female, unfortunately a very poor historian. Granddaughter was in the room. Ms. Feliciano had increased work of breathing, increased shortness of breath. Denied cough or congestion. She has felt lightheaded and felt as if she was going to pass out. She had very few fever and chills. Denied any cough. Denied any vomiting. She was admitted with acute on chronic renal failure. Serum creatinine was 2.1. I think her baseline creatinine is 1.6. Volume depletion. Elevated BUN and creatinine. History of nausea, anemia, and questionable syncope. She had a hip x-ray done, no evidence of fracture or dislocation. Abdominal and pelvic CT, thickening of the gastric wall involving the antrum and pylorus of the stomach, consider gastritis. Aberrant course of duodenum and jejunum seen on previous study. Several moderately distended loops of small bowel. Dr. Biswas was consulted. Dr. Lucas was consulted for anemia and small bowel obstruction. History of anemia. History melena. History gastritis on CT scan. Questionable small bowel obstruction. Previous EGD and colonoscopy done in June of 2015 showed gastritis and melena throughout the colon and diverticulosis which was suspicious for small bowel bleed at that time. In the setting of new CT findings of the possibility of moderate distention of small-bowel loops, suspect small bowel obstruction maybe by a mass which could intermittently bleed and cause of melena. OBJECTIVE: General: Today and she feels better. Vital signs: Temp 98.8 degrees, pulse 79, respirations 16, blood pressure 194/68. HEENT: Pupils are equal, round. Lungs: Clear in all lung walker. Cardiovascular: Regular rhythm and rate without murmur or S3. : Good urine output. LAB: White count 8,590, hematocrit is 27, platelet count 154,000. Sodium 142, potassium 3.6, chloride 108, bicarb 25, BUN 18, creatinine 0.9, so creatinine has improved. Albumin is 2.6. ASSESSMENT AND PLAN: 1. This is an 80-year-old female with possible gastrointestinal bleed. Upper EGD was normal. Had a colonoscopy scheduled for today. No obvious source of bleeding, upper and lower endoscopy. The only possibility at this time is that she could have small intermittent bleeding that is difficulty to see on both upper and lower endoscopy. She has had a normal small bowel and she could have a small bowel source for bleeding. If this persists may consider exploratory laparotomy. Given the intermittent nature of the bleed it is difficult to be too aggressive at this point. 2. Acute kidney injury which is improved. 3. Hypokalemic acidemia which is improved. Continue D5. 4. Hypertension, controlled. 5. Syncope. Probably due to volume depletion anemia. 6. CT scan consistent with aberrant course of duodenum and jejunum which is possibly the source of bleed. REVIEW OF HER ORDERS: I do not see any change at this point. She is on ceftriaxone 1 g q.24 hours, simethicone II 80 mg 4 times a day, Carafate 1 g q.6 hours, sodium phosphate 133 mL p.r.n., methylprednisone 40 mg IV q.8, Klonopin 0.5 mg daily. She is getting D5 0.5 normal saline at 75 mL an hour, Klonopin 0.5 mg daily. cc: Sean Polo MD
[2016-06-29] MEDS ORDERED: MYLICON DROPS (DOSE) ONE (11:43)
[2016-06-29] MEDS ORDERED: DIPRIVAN 1% ONE (13:11)
[2016-06-29] MEDS ORDERED: LR 1,000 ML ONE (13:40)
[2016-06-29] MEDS ORDERED: ANESTHESIA PB SET 88 IN 5742 ONE (13:40)
--- NOTE | 2016-06-29 13:55 | OPERATIVE NOTE ---
PROCEDURE DATE: 06/29/2016 DATE OF PROCEDURE: 06/29/2016. PROCEDURE: Colonoscopy. PREOPERATIVE DIAGNOSIS: Melenic stools, nausea. POSTOPERATIVE DIAGNOSIS: Mild diverticulosis. No evidence of any bleeding. No AVM's. DESCRIPTION OF PROCEDURE: After informed consent and adequate intravenous sedation and normal digital rectal examination, the scope introduced all the way into the cecum. The entire colon is clear of any old or fresh blood. There are no AVM's, tumors, and no evidence of any bleeding. There are a few diverticula scattered throughout the colon. Again, no signs of bleeding. The scope was withdrawn. The patient tolerated the procedure and transported back to recovery area in satisfactory condition. cc: Frank Chawla MD
[2016-06-29] MEDS: SODIUM CHLORIDE 0.9% INJ SCH (16:32)
[2016-06-29] MEDS: PROTONIX IV SCH ×2 (16:34→17:02)
[2016-06-29] MEDS ORDERED: PRINIVIL PO ONE (21:27)
[2016-06-29] MEDS: ROCEPHIN 1 GM/NS 1 GM/50 ML IVPB IV SCH (22:25)
[2016-06-30] MEDS: CARAFATE LIQUID PO SCH ×2 (03:49→11:40)
[2016-06-30] MEDS: SOLU-MEDROL IV SCH ×2 (03:50→11:40)
--- NOTE | 2016-06-30 06:26 | PROGRESS NOTE ---
DATE: 06/30/2016 SUBJECTIVE: No major issues. I reviewed both her EGD and colonoscopy. No obvious source of bleeding noted. OBJECTIVE: Vital Signs: Patient is currently afebrile. Her vital signs are stable. General Examination: No acute distress. Alert. HEENT: Normocephalic, atraumatic. Pupils equal, round, reactive to light. Mucous membranes moist. Oropharynx benign. Neck: Supple. Trachea midline. Cardiovascular: Regular rate and rhythm. Lungs: Grossly clear. Abdomen: Soft, nontender, nondistended. Extremities: Moves all extremities well. Neurologic: Grossly intact. Skin: No signs of jaundice. Vascular: All extremities perfused. Laboratory: Currently pending from this morning. Her hematocrit yesterday was 27.6. ASSESSMENT/PLAN: An 80-year-old, female with possible gastrointestinal bleed. Possible gastrointestinal bleed. At this time, both her upper and lower endoscopy are normal. She had no obvious stigmata of bleeding on colonoscopy. No blood noted in the colon per the report. Her hematocrit is slightly down from 2 days ago. We will repeat her labs this morning. At this time, I suspect she probably has a very slow bleed if she does have one. There is a potential that it is in the small bowel if she does have a bleed. Unfortunately, if it is a very slow bleed, this could be difficult to localize by imaging and surgery. We will repeat labs this morning. If she does indeed have a continued drop in her hematocrit, may need to consider surgical intervention in the morning but I suspect it will be difficult to even localize surgically. We will follow up with morning labs to make further recommendations. cc: Wilfrido Lucas MD
[2016-06-30] MEDS: PROTONIX IV SCH (06:40)
[2016-06-30] MEDS: SODIUM CHLORIDE 0.9% INJ SCH (06:40)
[2016-06-30] MEDS: TYLENOL PO PRN ×2 (06:42→17:45)
[2016-06-30 06:53] LABS: HEMATOCRIT 30.2 % (37.0-47.0); HEMOGLOBIN 10.2 g/dL (12.0-16.0); IMM GRAN# 0.03 X1000 (0.0-0.04); IMM GRAN% 0.3 % (0.0-0.5); LYMPH# 0.55 X1000 (1.2-3.4); LYMPH% 5.6 % (20.5-51.1); MCH 31.6 PG (27-31); MCHC 33.8 g/dL (33-37); MCV 93.5 FL (81-99); MONO# 0.24 X1000 (0.11-0.59); MONO% 2.4 % (1.7-9.3); MPV 13.1 FL (7.4-10.4); NEUT% 91.7 % (42.2-75.2); PLT 181 X1000 (130-400); RBC 3.23 XMIL (4.2-5.4)
[2016-06-30 07:08] LABS: MANUAL DIFF NEEDED? NO
[2016-06-30] MEDS: KLONOPIN PO SCH (11:46)
[2016-06-30 16:15] VITALS: BP 175/72
--- NOTE | 2016-06-30 16:18 | DISCHARGE SUMMARY ---
ADMISSION DATE: 06/25/2016 DISCHARGE DATE: 06/30/2016 HISTORY OF PRESENT ILLNESS: She presented with nausea and shortness of breath. Patient is an 80- year-old, very difficult historian. Her granddaughter was in the room at the time of admission. It appeared that Ms. Feliciano had increased work of breathing, increased shortness of breath. Denied cough or congestion. States that she felt lightheaded and felt as though she was going to pass out. It did not appear she had any history of fever and chills. Denied any cough or vomiting, but has been nauseated a couple of times this last couple of days. States that she would get short of breath and could not breathe. She is a patient of Dr. Dean Lockett. He has followed her. She has had trouble with anemia before and apparently has had a workup with Dr. Phelps in the past. She was admitted because serum creatinine was 2.1 and it was thought this represented acute on chronic renal injury, volume depletion, elevated BUN and creatinine, history of nausea, and anemia. Hematocrit on presentation was 28. While she was here in the hospital, she had a soft, black tarry stool and hematocrit dropped from 28 to 21.9. She was given 2 units of packed red blood cells. She had an EGD and colonoscopy in 2016, which showed evidence of possible small-bowel bleed. EGD showed mild gastritis. Colonoscopy showed dark stool throughout the colon. Internal hemorrhoids were present. REVIEW OF PAST MEDICAL HISTORY: 1. History of anemia. 2. GI bleed. 3. Constipation. 4. Reflux disease. 5. Hyperlipidemia. 6. Hypothyroidism. 7. Hypertension. 8. Anxiety. 9. Osteoporosis. 10. Chronic kidney disease. 11. Chronic anemia, on iron. HOSPITAL COURSE: She had a CT of the abdomen and pelvis done on 06/26/2016. Thickening of the gastric wall involving the antrum, pylorus, and stomach, and consider gastritis. Aberrant course noted in the duodenum and jejunum, which was not seen on previous study, and several moderately distended loops of small-bowel, and there was suspicion that maybe there is some bleeding from the jejunum. Dr. Lucas was consulted and Dr. Biswas was consulted. [place] potential gastrointestinal bleed. MCV did not suggest iron deficiency, although she had been receiving some iron supplement. Hemoccult was stool was positive. Attempts to try and localize the bleeding with no success. They repeated the EGD and colonoscopy per Dr. Chawla. Mild diverticulosis. No evidence of active bleeding. No AVMs. Hematocrit remained stable. Patient felt better. There is still suspicion that she could have bleeding and we will monitor. Dr. Lockett will follow up. At this point, we will not pursue further workup. If bleeding becomes more brisk and hematocrit dropping quicker, may need to do bleeding study, may need to do small-bowel studies. The patient would like to go home, so we will arrange for her to be discharged to follow up with Dr. Lockett. MEDICATIONS: She was put on antibiotic. We will stop that. I do not see any source of bacterial infection. She has Klonopin 0.5 mg a day. She is on Solu-Medrol, which we can stop. She is on Protonix 40 mg IV q.12. We will just give her Protonix 40 mg p.o. once a day. She was getting Mylicon 80 mg p.o. 4 times a day. Carafate 1 g p.o. q.6 hours and we will continue that for another 4 weeks. NOTE: Hematocrit on 06/30/2016 was 31 and hemoglobin was 10.2. The creatinine was down to 0.9. Good p.o. intake. Strength was good. DISPOSITION: We will discharge her home on 06/30/2016. cc: Sean Polo MD
--- NOTE | 2016-06-30 17:16 | PROGRESS NOTE ---
DATE: 06/30/2016 SUBJECTIVE: Patient is resting in bed. She denies any nausea, vomiting, vomiting blood or passing blood in the stools and no melena. She denies any fever or chills. Her hemoglobin and hematocrit is stable. Her colonoscopy yesterday showed evidence of diverticulosis with no active bleeding found. There was no blood noted. AVMs noted. No evidence of any active bleeding noted on the colonoscopy performed by Dr. Chawla. Dr. Lucas is following along. There is a possibility of a small lesion seen on imaging which is causing moderately distended loops of small bowel. The patient and her family wants to discuss with Dr. Lucas about the possibility of doing laparoscopy/ exploratory laparotomy. OBJECTIVE: Vital signs: Temp 98, pulse rate 82, respiratory 14, blood pressure 175/72, saturating 92% on room air. General Appearance: Thinly built, lying in bed, in no acute distress. HEENT: Mild pallor. No icterus. Neck: Supple. Abdomen: Soft, nontender, nondistended. Bowel sounds noted. Extremities: No Cyanosis. Neurologic: Alert, awake and answers questions. LABS: Hemoglobin and hematocrit is 10.2 and 30.2. White count 9.8, platelet count of 181,000, MCV of 93.5. Sodium 142, potassium 3.6, chloride 100, bicarb 25, anion gap 9, BUN of 18, creatinine 0.9, glucose of 131, calcium 7.7, total bilirubin is 0.32, AST 26, ALT 16, alkaline phosphatase 34, total protein 4.7, albumin 2.6. Occult blood stool was positive. IMPRESSION/PLAN: 1. Melena/anemia of unclear etiology. Suspect small bowel source. EGD showed evidence of mild gastritis. Otherwise no evidence of active bleeding with fresh or old blood. Also the colonoscopy showed evidence of diverticulosis. No areas of active bleeding or AVMs. Possible small bowel lesions seen on CT scan causing moderate distention of metal small bowel loops. Dr. Lucas is on board. Dr. Lucas and family discuss about possible surgical options including exploratory laparotomy. The patient is thinking about it. Her daughter is present at bedside. I discussed in detail other options including going to [facility] to get enteroscopy done as well. The patient and family are thinking about it. 2. Anemia. Patient to continue on Iron C b.i.d. for now. 3. Reflux disease. Patient continued on PPI once daily for 12 weeks. 4. Diverticulosis. Avoid corn, nuts, and seeds in diet. Avoid constipation. 5. Above plan of care was discussed with patient and family at bedside. All questions were answered. CC: Dr. Lucas and Dr. Polo. cc: Vance Biswas MD [facility]
--- NOTE | 2016-07-02 20:19 | ED EKG INTERP ---
This chart was entered by Kirsten Chaidez Scribe, acting as scribe for Archie Lockett DO. EKG Interpretation - EKG Time of EKG reading by physician:: 20:50 EKG Read and Signed by:: Archie Lockett EKG Interpretation (*Must complete 3 of following elements*): Abnormal Rate: 88 Rhythm: NSR [place]: left QRS: LVH (WITH REPOLARIZATION ABNORMALITY) Comments: Abnormal ECG This chart was documented by the indicated scribe, (Kirsten Chaidez Scribe) and accurately reflects the services I performed and decisions made by , Archie Lockett DO, as attested by the provider's signature.
--- NOTE | 2016-07-02 20:20 | PROVIDER DOCUMENTATION ---
This chart was entered by Kirsten Chaidez Scribe, acting as scribe for Archie Lockett DO. HPI-Respiratory General - General Chief Complaint: Shortness of Breath Stated Complaint: difficulty breathing Time Seen by Provider: 06/24/16 20:53 Source: patient Allergies/Adverse Reactions: Patient Allergies Allergy/AdvReac Type Severity Reaction Status Date / Time No Known Allergies Allergy Verified 06/30/16 19:22 Home Medications: Home Medication List Medication Instructions Recorded Confirmed Last Taken Type Clonazepam 0.5 mg PO DAILY 06/26/16 06/30/16 Unknown History Diltiazem HCl [Dilt-Xr] 240 mg PO DAILY 06/26/16 06/30/16 Unknown History Doxepin HCl 50 mg PO DAILY 06/26/16 06/30/16 Unknown History Fenofibrate Nanocrystallized 145 mg PO DAILY 06/26/16 06/30/16 Unknown History [Fenofibrate] Lisinopril 40 mg PO BID 06/26/16 06/30/16 Unknown History PRAVAstatin [Pravachol] 40 mg PO HS 06/26/16 06/30/16 Unknown History Pantoprazole [Protonix] 40 mg PO DAILY@0700 06/26/16 06/30/16 Unknown History Raloxifene [Evista] 60 mg PO DAILY 06/26/16 06/30/16 Unknown History Tramadol HCl/Acetaminophen 1 each PO TID 06/26/16 06/30/16 Unknown History [Tramadol-Acetaminophn 37.5-325] Sucralfate [Carafate Liquid] 1 gm PO Q6HR #112 udc 06/30/16 06/30/16 Unknown Rx - History of Present Illness-Resp Nature of Presenting Problem: 80 y/o F presents to ED with SOB. Pt was found by daughter this evening after calling her blue in face, couldn't breathe. Hx of blood loss, states in stomach full workup couldn't locate the cause. 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 Still c/o of SOB. Quality of Pain: reports: tightness Severity in ED: reports: severe Onset/Duration: reports: just prior to arrival, 1-3 hours ago, this evening Timing: reports: still present Cough Quality/Degree: reports: no cough Associated Symptoms: reports: shortness of breath. denies: cough, dizziness, fever/chills Review of Systems - Adult - REVIEW OF SYSTEMS - ADULT Constitutional: denies: chills, fever Eyes: reports: no symptoms reported Ears, Nose, Mouth & Throat: reports: no symptoms reported Cardiovascular: reports: no symptoms reported Respiratory: reports: shortness of breath. denies: cough Gastrointestinal: reports: no symptoms reported Genitourinary: reports: no symptoms reported Musculoskeletal: reports: no symptoms reported Integumentary: reports: no symptoms reported Neurological: reports: no symptoms reported Psychiatric: reports: no symptoms reported Endocrine: reports: no symptoms reported Hematologic/Lymphatic: reports: no symptoms reported Allergic/Immunologic: reports: no symptoms reported All Other Systems: Reviewed and Negative Past History - Adult - PAST MEDICAL HISTORY-ADULT Review of Records: reports: Old Records Reviewed, Nursing Assessment Review, Medications Reviewed, Social history reviewed & non-contributory. Major Childhood Illnesses: reports: denies history Cardiovascular: reports: HTN, hyperlipidemia Respiratory: reports: COPD Genitourinary: reports: kidney disease - PRIOR SURGERIES/PROCEDURES Surgical/Procedure History: reports: cholecystectomy, other (endometrial Sx) - IMMUNIZATION STATUS Childhood Immunizations: NUTD Flu Vaccine: NUTD - SOCIAL HISTORY Smoking: quit greater than 1 year Substance Use: none/never Alcohol Use Frequency: never Living Situation: alone Physical Exam-General - PHYSICAL EXAM-ADULT Initial Vital Signs Reviewed: Yes - CONSTITUTIONAL General Appearance: appears well, alert, mild distress - EYES Eyes: PERRL/EOMI, pink conjunctivae - HEAD, EARS, NOSE, MOUTH & THROAT HENMT: normocephalic/atraumatic, moist mucous membranes, normal ENT inspection, TMs normal, pharynx normal - NECK Neck: non-tender, full range of motion, supple, normal inspection - RESPIRATORY Respiratory: respiratory distress - CARDIOVASCULAR Cardiovascular: normal peripheral pulses, regular rate, rhythm - GASTROINTESTINAL (ABDOMEN) Abdominal Exam: normal bowel sounds, non tender, soft - LYMPHATIC Lymphatic: no adenopathy - MUSCULOSKELETAL Back Exam: normal inspection Extremity: normal range of motion - SKIN Integumentary: normal color, normal turgor, warm/dry - NEUROLOGIC Neurologic: development engineer II-XII nml as tested - PSYCHIATRIC Psych/Mental Status: normal mood/affect, normal thought content, normal thought process, oriented x 3 Progress - PLAN OF CARE/RESULTS Progress/Plan/Lab Results: Orders Category Date Time Status Admit - [facility] Routine AdmDCTranf 06/25/16 00:38 Ordered Call Admitting on Arrival AT ADMISSION Care 06/25/16 00:40 Completed Cardiac Monitoring DIRECTED Care 06/24/16 20:48 Completed Neurological Check Q4 Care 06/25/16 00:40 Active Oxygen Therapy- ED Nursing DIRECTED Care 06/24/16 20:48 Completed Saline Loc DIRECTED Care 06/25/16 00:38 Completed Vital Signs Order ARRIVAL TO ROOM Care 06/25/16 00:38 Completed BLOOD CULTURE [BLDCUL] Stat Lab 06/24/16 21:05 Completed CBC WITH DIFF [HEME] Stat Lab 06/24/16 20:25 Completed CK PROFILE [SP CHEM] Stat Lab 06/24/16 20:25 Completed COMPREHENSIVE METABOLIC PANEL [CHEM] Stat Lab 06/24/16 20:25 Completed LACTATE, PLASMA [CHEM] Stat Lab 06/24/16 20:25 Completed MAGNESIUM [CHEM] Stat Lab 06/24/16 20:25 Completed PRO B-NATRIURETIC PEPTIDE Stat Lab 06/24/16 20:25 Completed TROPONIN T Stat Lab 06/24/16 20:25 Completed TYPE & SCREEN [BBK] Stat Lab 06/24/16 20:25 Completed 0.9% Sodium Chloride Inj [Ns] 1,000 ml Med 06/25/16 00:38 Discontinued IV 100 mls/hr Oxygen Device Routine Oth 06/25/16 00:40 Completed Pulse Oximetry Stat Oth 06/24/16 20:48 Completed Telemetry [OM.EQ] Routine Oth 06/25/16 00:38 Active EKG [EKG] Stat Ther 06/24/16 20:48 Draft Transfer/Admit Order [TRANSFER] Routine Transfer 06/25/16 00:41 Completed Result Diagrams: 06/30/16 06:39 06/29/16 05:30 - CONSULTS/PCP/HOSPITALIST Notification #1 *Consult/PCP/Hospitalist*: Time Discussed: 00:24 Reason/Comments: Admit Consult Disposition: Admit (Admit Accepted) Departure - Departure Time of Disposition Decision: 01:00 DIAGNOSIS: SOB (shortness of breath) Disposition: ADMITTED INPATIENT 09 Certified Medical Emergency: Emergent Condition: Stable - Critical Care Note This patient required my direct & personal management of CC.: No This chart was documented by the indicated scribe, (Kirsten Chaidez, Raj) and accurately reflects the services I performed and decisions made by , Archie Lockett DO, as attested by the provider's signature.
== END 2016-06-30 18:22 | disposition home or self-care (01) ==
LOC: P.ED 20:31 → SUATTDRO 06-25 01:12 → P.MEDSURG 06-25 01:12 → P.ICU 06-25 19:59 → 4N 06-26 17:53
PROVIDERS: ATTEND Emergency Medicine

== ENCOUNTER 2016-07-05 21:56 | Inpatient (IN) ==
[2016-07-05 20:15] LABS: MANUAL DIFF NEEDED? NO
[2016-07-05 20:24] LABS: BASO% 0.4 % (0.0-0.8); EOS# 0.24 X1000 (0.0-0.7); EOS% 3.1 % (0.0-10.0); HEMATOCRIT 21.2 % (37.0-47.0); HEMOGLOBIN 6.5 g/dL (12.0-16.0); IMM GRAN# 0.03 X1000 (0.0-0.04); IMM GRAN% 0.4 % (0.0-0.5); LYMPH# 1.68 X1000 (1.2-3.4); MCHC 30.7 g/dL (33-37); MCV 104.4 FL (81-99); MONO# 0.73 X1000 (0.11-0.59); MONO% 9.6 % (1.7-9.3); MPV 13.1 FL (7.4-10.4); NEUT% 64.5 % (42.2-75.2); PLT 211 X1000 (130-400); RBC 2.03 XMIL (4.2-5.4)
[~2016-07-05 21:56] MED LIST: NS 250 ML ONE
--- NOTE | 2016-07-05 22:24 | HISTORY AND PHYSICAL ---
CHIEF COMPLAINT: Follow up from the recent hospitalization at [facility], 06/26 to 06/30 under the hospitalist. HISTORY OF PRESENT ILLNESS: She is an 80-year-old, pleasant white female recently discharged from the hospital for occult GI bleeding by Dr. Biswas and Dr. Chawla. She was admitted on 06/26/2016 with hematocrit that was 21. She had a black melanotic stool. She had a CT scan of the abdomen and pelvis, EGD and colonoscopy done. Nothing was revealing for source of bleeding. She was given 2 units of packed RBCs. She had an intermittent occult GI bleeding. In the past she had a CT of the abdomen and pelvis, EGD and colonoscopy and capsule endoscopy were negative. Anyhow, she was brought in my office today as a followup from the hospital. In my office she is very pale. She is not able to do any activities of daily living. She is wheelchair bound. After lengthy discussion with the granddaughter, I did send home with Hemoccult stools , scheduled for capsule endoscopy and Hemoccult stools. In the meantime, hematocrit came back at 18.9. I did call the family to be readmitted to [facility] for symptomatic anemia. Needs 2 units of packed RBC as well as iron infusion and also schedule for CT angiogram of the abdomen for source of bleeding. If it is not detectable, consider small bowel follow- through. For all these reasons, she has been readmitted to the hospital. PAST MEDICAL HISTORY: Chronic GI bleeding. Occult bleeding loss. Chronic kidney disease. COPD. Diverticulosis. Acid reflux disease. Hearing loss. Hypertension. Hyperlipidemia. Sleep apnea. Osteoporosis. PAST SURGICAL HISTORY: Cystocele repair. Cholecystectomy. MEDICINES IN MY OFFICE: Cardizem 240 daily, doxepin 50 t.i.d., Klonopin 0.5 daily, lisinopril 40 mg p.o. once daily, Pravachol 40 daily, pravastatin 80 daily, Protonix 40 daily , Tricor 140 mg daily, Evista 60 daily, Ultracet as needed for pain. ALLERGIES: Not known. SOCIAL HISTORY: , 4 kids. Lives in [place]. No smoking. No alcohol. No drug abuse. FAMILY HISTORY: Father of heart attack at 71. Mom of old age at 92. HEALTH MAINTENANCE: Flu vaccine 2014. Pneumococcal vaccine 2014. Mammography 2016. Colonoscopy recently done by Dr. Chawla in any 2017 as well as 2016. REVIEW OF SYSTEMS: HEENT: No headache. No vision problem. No earache. No sore throat. Neck: No goiter. No lymphadenopathy. No bruit. Cardiopulmonary: Exertional shortness of breath, fatigue, weakness, no chest pain. No PND. No orthopnea. No swelling of feet. GI: No nausea, vomiting, abdominal pain. Bleeding per rectum. Altered bowel habits. : No history of hesitancy, frequency, dysuria, hematuria. Neurologic: No obvious focal symptoms or weakness. PHYSICAL EXAMINATION: Vitals are stable. 5 feet 6 inches, 164 pounds. HEENT: Atraumatic, normocephalic. Pale. No jaundice, TMs are normal. Nose and throat within normal limits. NECK: Supple. No lymphadenopathy. JVD is normal. No goiter. CHEST: Bilateral air entry. HEART: Sounds are regular. ABDOMEN: Belly is soft, nontender. Good bowel sounds. No signs of peritonitis. No masses palpable. No peripheral edema, cyanosis, clubbing. NEUROLOGIC: No obvious focal deficits. Unable to do orthostatic blood pressure changes because patient is wheelchair bound. INVESTIGATIONS: CBC: White cell count 7.6, hemoglobin 6, hematocrit was 18, MCV is 104. Platelet 211,000. Today in my office, SMA7, sodium 143, potassium 4.5, chloride 106, BUN 21, creatinine 1.3, glucose 130. ASSESSMENT AND PLAN: 1. An 80-year-old pleasant white female, readmitted to the hospital with symptomatic anemia due to occult gastrointestinal bleeding. Recent GI workup, esophagogastroduodenoscopy/colonoscopy and computed tomography of the abdomen and pelvis unremarkable. Type and cross for 2 units. Transfuse tonight and repeat complete blood count, SMA7 in the morning. 2. Occult gastrointestinal bleeding. Consider CT abdominal angiogram. If it is not revealing, we will consider small bowel follow-through and outpatient capsule endoscopy. 3. Reconcile home medications. 4. Discussed with the patient as well as the family about the plan of care and we will follow up. cc: Aníbal Lockett MD MTDD
[2016-07-06] MEDS: PRAVACHOL PO SCH ×2 (00:07→20:56)
[2016-07-06] MEDS: PROTONIX IV SCH ×2 (00:07→20:56)
[2016-07-06] MEDS: SODIUM CHLORIDE 0.9% INJ SCH ×2 (00:09→20:56)
[2016-07-06 10:34] LABS: MANUAL DIFF NEEDED? NO
[2016-07-06 10:40] LABS: BASO% 0.6 % (0.0-0.8); EOS# 0.32 X1000 (0.0-0.7); EOS% 4.5 % (0.0-10.0); HEMATOCRIT 30.4 % (37.0-47.0); HEMOGLOBIN 10.2 g/dL (12.0-16.0); IMM GRAN# 0.02 X1000 (0.0-0.04); IMM GRAN% 0.3 % (0.0-0.5); LYMPH# 1.12 X1000 (1.2-3.4); LYMPH% 15.9 % (20.5-51.1); MCHC 33.6 g/dL (33-37); MCV 95.3 FL (81-99); MONO# 0.84 X1000 (0.11-0.59); MONO% 11.9 % (1.7-9.3); MPV 12.6 FL (7.4-10.4); NEUT% 66.8 % (42.2-75.2); PLT 188 X1000 (130-400); RBC 3.19 XMIL (4.2-5.4)
[2016-07-06 11:12] LABS: CALCIUM 8.9 mg/dL (8.8-10.2); POTASSIUM 3.7 mmol/L (3.5-5.1)
--- NOTE | 2016-07-06 12:29 | Diag Imaging Result Doc PS360 ---
GI BLEED - 07/06/2016 INDICATION: GI bleeding COMPARISON: None FINDINGS: 20.9 mCi of labeled red blood cells was used. Imaging was obtained for over one hour. There is normal localization of the radiotracer. There is no evidence of gastrointestinal bleeding. IMPRESSION: Negative exam. Electronically signed by Parveen Pinto 07/06/2016 12:27 PM
[2016-07-06] MEDS: KLONOPIN PO SCH (13:39)
[2016-07-06] MEDS: SINEQUAN PO SCH (13:39)
[2016-07-06] MEDS: ULTRACET 37.5MG/325MG PO SCH ×3 (13:39→20:57)
[2016-07-06] MEDS ORDERED: VENOFER IV ONE (18:20)
--- NOTE | 2016-07-06 18:39 | PROGRESS NOTE ---
DATE: 07/06/2016 SUBJECTIVE: The patient did receive 2 units of packed RBCs. Unable to do CT abdominal angiogram due to creatinine 1.5. The patient is not offering any complaints. REVIEW OF SYSTEMS: None reported. EXAM: Vitals: Stable, 148 pounds. HEENT: Exam slightly pale. Neck: Supple. Chest: Clear. Heart: Sounds are regular. Abdomen: Belly is soft, nontender. Good bowel sounds. No masses palpable. Extremities: No peripheral edema, cyanosis. Neurologic: No obvious neurological deficits. INVESTIGATIONS: CBC: White cell count 7, hematocrit 30, platelets 188. SMA-7: Sodium 146, potassium 3.7, chloride 110, BUN 8, creatinine 1.5. ASSESSMENT AND PLAN: 1. Anemia with occult gastrointestinal bleeding, blood loss. Follow up on Hemoccult. Will schedule for a GI bleeding scan status post 2 units of packed red blood cells. 2. Chronic anxiety. Continue on doxepin and Klonopin. 3. Hyperlipidemia. On Pravachol. 4. Chronic pain on Ultracet. 5. We will hold the blood pressure medicine. LEVEL OF DOCUMENTATION: 25 minutes. cc: Aníbal Lockett MD
[2016-07-06] MEDS ORDERED: ZOFRAN IV PRN (18:43)
[2016-07-06] MEDS ORDERED: VENOFER 300 MG in NS 250 ML IV ONE (20:00)
[2016-07-07 06:35] LABS: MANUAL DIFF NEEDED? NO
[2016-07-07 06:48] LABS: BASO% 0.2 % (0.0-0.8); EOS% 2.3 % (0.0-10.0); HEMOGLOBIN 7.1 g/dL (12.0-16.0); IMM GRAN# 0.04 X1000 (0.0-0.04); IMM GRAN% 0.5 % (0.0-0.5); LYMPH# 1.51 X1000 (1.2-3.4); LYMPH% 17.3 % (20.5-51.1); MCH 31.7 PG (27-31); MCHC 32.3 g/dL (33-37); MCV 98.2 FL (81-99); MONO# 0.82 X1000 (0.11-0.59); MONO% 9.4 % (1.7-9.3); MPV 12.9 FL (7.4-10.4); NEUT% 70.3 % (42.2-75.2); PLT 178 X1000 (130-400); RBC 2.24 XMIL (4.2-5.4)
[2016-07-07 06:59] LABS: CALCIUM 7.7 mg/dL (8.8-10.2); POTASSIUM 4.8 mmol/L (3.5-5.1)
--- NOTE | 2016-07-07 07:43 | CONSULTATION ---
DATE OF CONSULTATION: 07/07/2016 CHIEF COMPLAINT: GI bleeding, unknown etiology. HISTORY OF PRESENT ILLNESS: This is an 80-year-old lady who was admitted on the with blood- loss anemia. She had been previously admitted with a similar diagnosis, and her workup had been negative. She continues to have gradual blood loss, and upon admission this time, her hemoglobin was 6.5, her hematocrit 21. PAST MEDICAL HISTORY: Pertinent for chronic kidney disease, COPD, diverticulosis, gastroesophageal reflux disease, hypertension, hyperlipidemia, sleep apnea, osteoporosis. PAST SURGICAL HISTORY: A cystocele repair and a conventional cholecystectomy. MEDICATIONS: In the office, includes Cardizem, doxepin, Klonopin, lisinopril, Pravachol, Protonix, TriCor, Evista, and Ultracet as needed for pain. ALLERGIES: She has no known drug allergies. SOCIAL HISTORY: She is . Denies alcohol usage. FAMILY HISTORY: Pertinent for coronary artery disease. REVIEW OF SYSTEMS: Pertinent only for the dark stool. PHYSICAL EXAMINATION: General: She has some diminished hearing. Vital Signs: Afebrile. Heart rate 91, blood pressure 110/60. Neck: No cervical adenopathy. Lungs: Bilateral breath sounds. Heart: Regular rate and rhythm. Abdomen: Soft and nontender. Subcostal scar is noted. Extremities: Femoral pulses are present. Trace peripheral edema. She does have some scattered ecchymoses. Neurologic: She is awake and alert. LABORATORY STUDIES: Today, her hemoglobin is 7.1, hematocrit 22, BUN 32, creatinine 1.3. ASSESSMENT: Chronic gastrointestinal blood loss, unknown etiology. Apparently, her workup thus far has been negative, including a bleeding scan, and she may have had a capsule endoscopy also. The only other thing I would consider is a push endoscopy to further evaluate her small bowel. Yield from an exploratory laparotomy is extremely small, and I am not sure would be in her best interest. I think every means of investigation should be exhausted before subjecting her to a laparotomy. Thanks for the opportunity to see her. cc: MD Aníbal Tsang MD
--- NOTE | 2016-07-07 08:55 | PROGRESS NOTE ---
DATE: 07/07/2016 SUBJECTIVE: The patient is out of the room and went for small bowel follow through studies. Blood pressure is running low. The patient is a poor historian. PHYSICAL EXAMINATION: Vital Signs: On examination, she is afebrile. Her vital signs are stable. Blood pressure is 110/60. Skin: She appears to be pale. Chest: Clear. Heart: Sounds are regular. Abdomen: Belly is soft, nontender. Good bowel sounds. The rest of the exam, no change. INVESTIGATIONS: Unable to obtain the stool. Laboratories, CBC: White cell count 8.7, hematocrit 22, platelets 178,000. SMA-7: Sodium 143, potassium 4.8, chloride 112, BUN 32, creatinine 1.3, calcium 7.7. ASSESSMENT AND PLAN: 1. Anemia due to occult gastrointestinal bleeding. Previous gastrointestinal workup x2 is negative. Her bleeding scan was negative. I appreciate Dr. Felipe's consultation, and we will transfuse 2 units of packed red blood cells today, as well as intravenous added infusion. The patient has gone for small bowel follow through studies. 2. We will hold the home medications for blood pressure. LEVEL OF DOCUMENTATION: The level of documentation is 25 minutes. cc: Aníbal Lockett MD
--- NOTE | 2016-07-07 12:14 | CONSULTATION ---
DATE OF CONSULTATION: 07/07/2016 REASON FOR CONSULTATION: Continued anemia secondary to occult GI blood loss. HISTORY OF PRESENT ILLNESS: This is a pleasant, elderly lady who has been seen recently discharged with a history of melenic stools and hematocrit of 21. Now the hematocrit is back to 21. She has received 2 units of blood transfusion. She had a colonoscopy on the last admission that was negative. I could not find the upper GI endoscopy and I am not sure if she had a capsule endoscopy. We will pursue this further. I think "capsule" endoscopy would be the next step, but I will look through her records and see if she had upper GI endoscopy. She denies any symptoms at this time. No nausea, vomiting, hematemesis. She is does not know if she has stool that is dark. PAST MEDICAL HISTORY: Chronic GI blood loss. Chronic kidney disease. COPD. Diverticulosis. She has symptoms reflux. Hypertension, hyperlipidemia and sleep apnea. Osteoporosis. PAST SURGICAL HISTORY: Cystocele and cholecystectomy. MEDICATIONS: Cardizem 240 daily. Doxepin 50 daily, Klonopin 0.5 daily and lisinopril 40 daily, Pravachol 40 daily, pravastatin 80 daily. Protonix 40 daily. TriCor 140 daily. Evista 60 daily. ALLERGIES: None. SOCIAL HISTORY: She is , 4 kids, lives in [place]. She does not smoke. She does not drink. No drugs. FAMILY HISTORY: Father had a heart attack. Mother of old age. HEALTH MAINTENANCE: Flu vaccine in 2014. Colonoscopy was done recently, 10 days ago. REVIEW OF SYSTEMS: Essentially negative other than feeling weak. PHYSICAL EXAMINATION: Vital Signs: Stable. Blood pressure 100/60, pulse of 80, respirations 16. She weighs 164 pounds. HEENT: Pale. No scleral icterus. Neck: Supple. Trachea midline. Heart: Normal first and second heart sounds. Lungs: Clear. Abdomen: No organomegaly. No ascites. Bowel sounds present and normal. Extremities: No edema, cyanosis or clubbing. Neurological: No focal deficit. LABORATORY DATA: White count 7.6, hemoglobin 6, hematocrit 18, MC 104, platelets 211,000 creatinine 1.3. IMPRESSION AND PLAN: 1. Chronic blood loss anemia. Iron deficiency. So far investigations are negative however she needs a "capsule" endoscopy. I will review. I could not find an upper GI endoscopy on her. Also we might need to check her bone marrow and get Hematology consult to see if she is making any blood. 2. Continue occult gastrointestinal blood loss. Plan as above. 3. Hypercholesterolemia. 4. Hypertension. Continue those medicines. I think plan as far as GI is concerned room and anemia is concerned I think more of a Hematology consult and a capsule endoscopy are next. We also need to pull the EGD and reconcile if she had one and when was the last time she had this; we will do. cc: MD Aníbal Cai MD
--- NOTE | 2016-07-07 14:20 | PROGRESS NOTE ---
DATE: 07/07/2016 SUBJECTIVE: Patient currently receiving her 4th unit of blood transfusion. Her hemoglobin and hematocrit dropped from yesterday. Today, so far, she denies passing any blood , but according to the nursing records she had 2 liquid black tarry stools, per the records. She denies any fevers, rigors, chills. She denies any nausea, vomiting, or vomiting blood. OBJECTIVE: Vital Signs: Temperature 98.2 degrees, pulse of 109, respiratory rate 22, blood pressure 122/59, saturating 96% on room air. General Appearance: Thinly built , lying in bed in no acute distress. HEENT: Pale conjunctivae. No icterus. Neck: Supple. Abdomen: Soft, nontender, nondistended. Bowel sounds are noted. Extremities: No cyanosis, clubbing, edema. Neurologic: She is alert, awake, oriented. LABORATORIES: Her hemoglobin and hematocrit are 7.1 and 22, white count of 8.7 , platelet count of 178,000, and MCV of 98.2. Sodium 143, potassium 4.8, chloride 102, bicarbonate 24, anion gap 7, BUN of 32, creatinine 1.3, glucose of 92, calcium of 7.7. IMPRESSIONS AND PLAN: 1. Gastrointestinal bleed, likely small bowel source. We appreciate Dr. Felipe' s consultation. In the interim, we will continue the patient on PPIs and will change the diet to a clear liquid diet for now, type and cross, and transfuse to keep hematocrit more than 25%. 2. Small-bowel x-ray was ordered today. The results are currently pending. Will review the results. There was a question of partial small-bowel obstruction. 3. Anemia. Continue to watch. She is getting IV iron, as well. 4. Previous EGDs and colonoscopy x2 have been negative so far. She also has an outpatient video capsule endoscopy done by Dr. Phelps around a year ago, which was also negative. 5. I discussed the above plan of care with the patient and with Dr. Felipe. Surgeons will be on standby if the patient needs a laparoscopy on exploratory laparotomy. The above plan of care was discussed with the patient and all questions were answered. cc: MD Aníbal Agosto MD Robert C. Walker, MD [facility]ITAL[facility]
--- NOTE | 2016-07-07 15:59 | Diag Imaging Result Doc PS360 ---
EXAM: SMALL BOWEL SERIES ONLY HISTORY: Occult GI Bleeding COMPARISON: None. FINDINGS: Total fluoroscopy time is 26 seconds. Total dose is 607.7 cGy square centimeter. Oral contrast was given until it passed through the small bowel and entered the colon. No small bowel obstruction. Normal mucosal pattern. No small bowel mass or stricture. Normal terminal ileum. Transit time into the colon fell between 2 1/2 and 3 1/2 hours. IMPRESSION: Normal small bowel series. Electronically signed by Aubrey Leavitt 07/07/2016 3:57 PM
--- NOTE | 2016-07-07 16:19 | PROGRESS NOTE ---
DATE: 07/07/2016 SUBJECTIVE: The patient denies abdominal pain, nausea, or vomiting. She has not seen any bloody stool today. OBJECTIVE: Vital Signs: She is afebrile. Pulse is 105, blood pressure 128/59, O2 saturation 97%. General: Elderly female in no distress who looks her stated age. Cardiovascular: Regular rhythm and mildly tachycardic. Respiratory: No work of breathing. Gastrointestinal: Soft, nontender. No organomegaly or mass. LABORATORY: White blood cell count 8, hemoglobin 7.1, hematocrit 22, platelet count 178,000. BUN 32, creatinine 1.3. ASSESSMENT AND PLAN: An 80-year-old female with occult gastrointestinal bleeding. Extensive workup so far has been unrevealing for a source in her esophagus, stomach, or duodenum as well as her colon or terminal ileum. She has had some dilated small bowel consistent with mild partial obstruction, although she has not really had any symptoms of obstructive disease. I discussed with her options of exploratory surgery versus ongoing testing with push enteroscopy at another institution. She is unsure what to do. I will discuss with Dr. Lockett and follow up her small bowel follow-through, which is currently in progress. cc: MD Aníbal Rosales MD
[2016-07-07] MEDS: ULTRACET 37.5MG/325MG PO SCH ×2 (17:02→18:42)
[2016-07-07] MEDS: SINEQUAN PO SCH (17:02)
[2016-07-07] MEDS: KLONOPIN PO SCH (17:02)
[2016-07-07] MEDS: SODIUM CHLORIDE 0.9% INJ SCH (20:22)
[2016-07-07] MEDS: PROTONIX IV SCH (20:22)
[2016-07-07] MEDS: PRAVACHOL PO SCH (20:22)
[2016-07-08 06:33] LABS: MANUAL DIFF NEEDED? NO
[2016-07-08 06:37] LABS: BASO% 0.7 % (0.0-0.8); EOS# 0.19 X1000 (0.0-0.7); EOS% 2.6 % (0.0-10.0); HEMATOCRIT 27.6 % (37.0-47.0); HEMOGLOBIN 9.1 g/dL (12.0-16.0); IMM GRAN# 0.02 X1000 (0.0-0.04); IMM GRAN% 0.3 % (0.0-0.5); LYMPH# 1.44 X1000 (1.2-3.4); LYMPH% 19.9 % (20.5-51.1); MCH 31.3 PG (27-31); MCV 94.8 FL (81-99); MONO# 0.71 X1000 (0.11-0.59); MONO% 9.8 % (1.7-9.3); MPV 12.4 FL (7.4-10.4); NEUT% 66.7 % (42.2-75.2); PLT 185 X1000 (130-400); RBC 2.91 XMIL (4.2-5.4)
[2016-07-08 06:51] LABS: CALCIUM 7.5 mg/dL (8.8-10.2); POTASSIUM 3.8 mmol/L (3.5-5.1)
[2016-07-08] MEDS: ULTRACET 37.5MG/325MG PO SCH ×2 (07:51→09:16)
[2016-07-08] MEDS: SINEQUAN PO SCH (09:16)
[2016-07-08] MEDS: KLONOPIN PO SCH (09:18)
--- NOTE | 2016-07-08 10:59 | PROGRESS NOTE ---
DATE: 07/08/2016 SUBJECTIVE: The patient is currently sleeping. She got Klonopin at 9 a.m. today. She was able to wake up and answer some questions. She denies any fevers, rigors, or chills. She had 1 bowel movement today which was dark in color. She denies any nausea, vomiting, vomiting blood. She only ate some bites this morning. Dr. Harden saw the patient yesterday. The patient had received a total of 4 units of blood transfusion. She was seen yesterday by Dr. Harden who is planning to follow up if there is a need for general surgery. OBJECTIVE: Vital signs: Temperature of 97.7 degrees, pulse rate of 90, respiratory rate 18, blood pressure 115/58, saturating 95% on room air. General Appearance: Thinly built, lying in bed, currently sleeping. HEENT: Pale conjunctivae. No icterus. Neck: Supple. Abdomen: Soft, nontender, nondistended. Bowel sounds noted. No rebound. No guarding. Extremities: No cyanosis, clubbing. Neurologic: She is sleeping but was able to wake up and answer questions. LABS: Her hemoglobin and hematocrit are 9.1 and 27.6, white count of 7.22, platelet count of 185,000, MCV of 94.8. Sodium 143, potassium 3.8, chloride 113, bicarb 22, anion gap of 8, BUN of 41, creatinine 1.3, glucose of 73, calcium is 7.5. Protein electrophoresis showed evidence of monoclonal band and IgG lambda. She is currently being seen by Dr. Foote. IMPRESSIONS AND PLAN: 1. Melena, likely small bowel source. In this regard, we will continue to transfuse as needed. Continue PPIs. We will schedule her for a push enteroscopy early next week if hematology work up is negative. 2. Monoclonal band on protein electrophoresis. She is scheduled for bone marrow biopsy tomorrow for further workup. 3. Gastrointestinal prophylaxis with PPIs. 4. Small bowel x-ray series was normal as per the radiologist's impression yesterday. We will evaluate the results of bone marrow biopsy before planning for further management steps. 5. Above plan was discussed with the patient and the nurse. cc: MD Aníbal Agosto MD Naveen T. Lobo, MD MTDD
--- NOTE | 2016-07-08 12:39 | CONSULTATION ---
DATE OF CONSULTATION: 07/08/2016 REASON FOR CONSULT: Anemia. HISTORY OF PRESENT ILLNESS: There is elderly female was admitted for symptomatic anemia. Her hematocrit at Dr. Lockett's office was 18.9. She was sent to the ER for further evaluation. She has had several recent admissions to our hospital for occult GI bleeding and has had EGDs and colonoscopies. They showed no active bleeding. Just showed mild gastritis and esophagitis. The patient does state that she has been noticing some black stools. She is not a very good historian, so she is not sure if she is taking any iron at this time or not. She states she just has not felt good and has been very weak. Denies any chest pain or dyspnea. Only past surgery is cholecystectomy. LABS: Upon admission showed a hemoglobin of 6.5, hematocrit 21.2, platelet count of 211,000. Serum protein electrophoresis was performed and there is an IgA lambda monoclonal band present. During this hospitalization she has had a GI bleeding study which was negative. She has also had a small bowel x-ray performed which showed no acute processes. Due to her melena and ongoing anemia, as well as with her monoclonal band, she is scheduled for push enteroscopy as well as a bone marrow biopsy in the morning. REVIEW OF SYSTEMS: All other review of systems are negative unless indicated in the HPI. PAST SOCIAL HISTORY: Denies alcohol, illicit drugs, or tobacco products. PAST MEDICAL HISTORY: Chronic GI bleeding, chronic kidney disease, COPD, hypertension, sleep apnea. ALLERGIES: No known allergies. PHYSICAL EXAMINATION: Constitutional: This is a frail-appearing, elderly female, in no acute distress. HEENT: Normocephalic. Mucous membranes are dry. Pupils equal , round, symmetric. Pulmonary: Breath sounds clear to auscultation. Normal respiratory effort. GI: Abdomen is soft, nondistended, nontender. Positive bowel sounds. Skin: No petechiae, ecchymosis, or rash. Musculoskeletal: Moves all extremities. Neurologic: Alert and oriented x3. DIAGNOSTIC DATA: WBC is 7.22, hemoglobin 9.1, hematocrit 27.6, platelet count a 185,000. Sodium is 143, potassium 3.8, BUN is 41, creatinine 1.3. Serum protein electrophoresis revealed an IgA lambda monoclonal band. GI bleeding scan was negative. Small bowel x-ray showed no acute process. ASSESSMENT AND PLAN: 1. Normocytic anemia with melena. Patient is scheduled for a push enteroscopy tomorrow. She has recently had EGD and colonoscopy. We are also checking iron indices, B12, and folic acid. Transfuse p.r.n. 2. IgA lambda monoclonal band on SPEP. She is having a bone marrow biopsy in the morning. We will follow along with that. 3. Gastrointestinal prophylaxis. Patient is on Protonix. Dictated by ZAIN Smith for Narayan Foote MD cc: ZAIN Smith MD Jagan Reddy, MD [facility]CARE SYSTEMAngela
[2016-07-08] MEDS ORDERED: KLONOPIN PO PRN (16:07)
[2016-07-08] MEDS: SODIUM CHLORIDE 0.9% INJ SCH (19:45)
[2016-07-08] MEDS: PROTONIX IV SCH (19:45)
[2016-07-08] MEDS: PRAVACHOL PO SCH (19:59)
--- NOTE | 2016-07-08 20:18 | PROGRESS NOTE ---
DATE: 07/08/2016 SUBJECTIVE: Patient is a poor historian. She is not offering any complaints. Interval workup was reviewed. Stool tests for positive for blood. REVIEW OF SYSTEMS: None reported. She is almost bedbound. PHYSICAL EXAMINATION: Vital Signs: Stable. She is not orthostatic. Still pale. Chest: Clear. Heart: Sounds are regular. Abdomen: Belly is soft, nontender. Good bowel sounds. Nonfocal. INVESTIGATIONS: CBC: White cell count 7.2, hematocrit 27, platelets 185,000, BUN 41, creatinine 1.3. SPEP reported. IgA lambda specific present, level is 0.31 g/dL. IgG levels are low. IgM is low. ASSESSMENT AND PLAN: 1. Anemia due to upper GI bleeding. Workup was negative. Transfuse as needed. Heme-positive stools. We will do outpatient capsule endoscopy. 2. Monoclonal gammopathy. IgA lambda present. Follow up on 24 hour urine Bence-Corbin protein, serum free light chain ratio, bone marrow biopsy tomorrow. Discuss with Dr. Centeno as well as Dr. Foote. Based on recommendations, will be conveyed to the patient's family. 3. Hyperlipidemia, on pravastatin. 4. Chronic anxiety on Klonopin and doxepin. LEVEL OF DOCUMENTATION: 35 minutes. cc: Aníbal Lockett MD
[2016-07-09 06:20] LABS: HEMATOCRIT 27.9 % (37.0-47.0); HEMOGLOBIN 8.9 g/dL (12.0-16.0); MCHC 31.9 g/dL (33-37)
[2016-07-09 06:28] LABS: BASO% 0.9 % (0.0-0.8); EOS# 0.27 X1000 (0.0-0.7); EOS% 5.1 % (0.0-10.0); LYMPH# 0.93 X1000 (1.2-3.4); LYMPH% 17.4 % (20.5-51.1); MCH 30.8 PG (27-31); MCV 96.5 FL (81-99); MONO# 0.64 X1000 (0.11-0.59); MPV 12.4 FL (7.4-10.4); NEUT% 64.6 % (42.2-75.2); PLT 179 X1000 (130-400); RBC 2.89 XMIL (4.2-5.4); RETIC% 6.22 % (0.8-2.1); RETIC-HE 41.4 PG (28.2-36.6)
[2016-07-09 06:33] LABS: IRON SATURATION 21 %; TIBC 207 ug/dL; TOTAL IRON 44 ug/dL (49-151); UNBOUND IRON 163 ug/dL (112-346)
[2016-07-09 07:06] LABS: FERRITIN 1282 ng/mL (13-150)
[2016-07-09] MEDS: SINEQUAN PO SCH (08:34)
[2016-07-09] MEDS ORDERED: SENSORCAINE-MPF 0.5%/EPI 1:200,000 ONE (08:55)
[2016-07-09 10:31] LABS: MANUAL DIFF NEEDED? YES
[2016-07-09 10:35] LABS: FLOW CYTOMETERY SOURCE BONE MARROW; LEUKEMIA LYMPHOMA BY FLOW REFERRED FOR TESTING
[2016-07-09] MEDS ORDERED: FENTANYL ONE ×2 (10:36→10:39)
[2016-07-09] MEDS ORDERED: DIPRIVAN 1% ONE ×2 (10:36→10:39)
[2016-07-09 10:52] LABS: EOS 2 % (1-10); LYMPHS 16 % (21-51)
[2016-07-09] MEDS: ULTRACET 37.5MG/325MG PO PRN ×2 (11:27→22:49)
[2016-07-09] MEDS ORDERED: XYLOCAINE-MPF 2% ONE (11:54)
--- NOTE | 2016-07-09 18:58 | PROGRESS NOTE ---
DATE: 07/09/2016 SUBJECTIVE: The patient is not offering any complaint. She is pleasant. OBJECTIVE: REVIEW OF SYSTEMS: None reported. PHYSICAL EXAMINATION: General Appearance: Appears to be pale. Vital Signs: Afebrile. Blood pressure is 140/58. She is not orthostatic, and anemic. Neck: Supple. Chest: Clear. Heart: Sounds are regular. Abdomen: Belly is soft, nontender. Good bowel sounds. No masses palpable. Extremities: No peripheral edema, cyanosis ,clubbing. INVESTIGATIONS: CBC: White cell count 5.3, hematocrit 28, platelets 179,000. B12, folate were normal. Stool for occult blood is positive. ASSESSMENT/PLAN: 1. Anemia. She has combination of occult gastrointestinal bleeding along with monoclonal gammopathy of unknown significance with IgA lambda. Waiting for 24 hour urine studies. 2. Discussed with the Dr. Centeno for bone marrow biopsy. Based on that, further recommendations will be followed. We will hold off discharge, continue these studies, and we will reassess on Tuesday. LEVEL OF DOCUMENTATION: Twenty-five minutes. cc: Aníbal Lockett MD
[2016-07-09] MEDS: SODIUM CHLORIDE 0.9% INJ SCH (20:22)
[2016-07-09] MEDS: PROTONIX IV SCH (20:22)
[2016-07-09] MEDS: PRAVACHOL PO SCH (20:22)
--- NOTE | 2016-07-10 03:19 | PROGRESS NOTE ---
DATE: 07/09/2016 SUBJECTIVE: The patient is currently resting in bed. She is back from the bone marrow biopsy. Results are currently pending. She denies any nausea, vomiting, or vomiting blood. She denies any fevers, rigors, chills. She denies having any bowel movements today. Her hemoglobin and hematocrit is stable today, and is currently 7.9. Her serum protein electrophoresis showed evidence of a monoclonal band. She is being seen by Dr. Centeno and Dr. Foote. OBJECTIVE: Vital Signs: Temperature of 98 degrees, pulse rate of 83, respiratory rate of 16, blood pressure 159/57, saturating 98% on room air. General Appearance: Elderly female lying in bed, in no acute distress. HEENT: Pale conjunctivae. No icterus. Neck: Supple. Abdomen: Soft, nontender, nondistended. Bowel sounds heard. No rebound. Extremities : No cyanosis or clubbing. Neurologic: She is alert, awake, oriented x3. LABORATORY STUDIES: Her hemoglobin and hematocrit is 8.9 and 27.9. White count of 5.34. Platelet count of 179,000. MCV of 96.5. Sodium 143, potassium 3.8, chloride 113, bicarbonate 22, anion gap of 8, BUN of 41, creatinine 1.3, glucose of 73, calcium 7.5. Percent saturation of iron is 21%, ferritin 1282, LDH 276. B12 is 737. Folate of 20. Bone marrow biopsy results are currently pending. IMPRESSION AND PLAN: 1. Anemia, currently stable. Will type and cross and transfuse to keep hematocrit more than 25%. 2. Gastrointestinal bleed, likely small bowel source. May need video capsule endoscopy as an outpatient. If she is relatively stable over the weekend, we made attempt to do a push enteroscopy on Tuesday. Risks benefits and alternatives discussed with the patient and all questions were answered. 3. We will follow up on the bone marrow biopsy results. 4. Continue on gastrointestinal prophylaxis with proton pump inhibitor. 5. Further recommendations are pending the hospital course. I discussed the plan of care with the patient, and all questions answered. cc: MD Aníbal Agosto MD Naveen T. Lobo, MD Dr. Dailey MTDD
[2016-07-10] MEDS: ULTRACET 37.5MG/325MG PO PRN (06:39)
[2016-07-10 06:47] LABS: MANUAL DIFF NEEDED? NO
[2016-07-10 06:59] LABS: BASO% 1.1 % (0.0-0.8); EOS# 0.21 X1000 (0.0-0.7); EOS% 4.6 % (0.0-10.0); HEMATOCRIT 28.8 % (37.0-47.0); HEMOGLOBIN 9.3 g/dL (12.0-16.0); LYMPH# 1.12 X1000 (1.2-3.4); LYMPH% 24.7 % (20.5-51.1); MCH 31.3 PG (27-31); MCHC 32.3 g/dL (33-37); MONO# 0.62 X1000 (0.11-0.59); MONO% 13.7 % (1.7-9.3); MPV 11.8 FL (7.4-10.4); NEUT% 55.9 % (42.2-75.2); PLT 189 X1000 (130-400); RBC 2.97 XMIL (4.2-5.4)
[2016-07-10] MEDS: SINEQUAN PO SCH (09:42)
--- NOTE | 2016-07-10 16:19 | PROGRESS NOTE ---
DATE: 07/10/2016 SUBJECTIVE: Patient is overall doing well. She did have a black bowel movement this morning. Denies abdominal pain. OBJECTIVE: Vital Signs: Afebrile. Pulse 92. Blood pressure 180/71. Cardiovascular: RRR. Lungs: CTA. Abdomen: Nontender. Extremities: No edema. LABORATORIES: Hematocrit is staying up at 28.8, hemoglobin 9.3, white count 4.54, platelets 189,000. Bone marrow biopsy results still pending. MGUS noted. ASSESSMENT: 1. Gastrointestinal bleeding, thought possibly related to small-bowel bleed. 2. Monoclonal gammopathy of undetermined significance. 3. Anemia, multifactorial. 4. Chronic kidney disease. 5. Chronic obstructive pulmonary disease. 6. Diverticulosis. 7. Gastroesophageal reflux disease. 8. Hypertension. 9. Presbycusis. 10. Hyperlipidemia. 11. Obstructive sleep apnea. 12. Osteoporosis. PLAN: At this time, we will continue to monitor daily CBCs to make sure her blood count does not drop to where she would require transfusion. Continue prophylaxis of peptic ulcer disease with Protonix. Continue Pravachol. Await possible push enteroscopy in [address] Biswas, and await bone marrow results. cc: MD Aníbal Shields MD
[2016-07-10] MEDS: PRAVACHOL PO SCH (21:45)
[2016-07-10] MEDS: PROTONIX IV SCH (21:45)
[2016-07-11 06:55] LABS: MANUAL DIFF NEEDED? NO
[2016-07-11 07:01] LABS: BASO% 1.3 % (0.0-0.8); EOS# 0.22 X1000 (0.0-0.7); EOS% 4.7 % (0.0-10.0); HEMATOCRIT 29.5 % (37.0-47.0); HEMOGLOBIN 9.4 g/dL (12.0-16.0); LYMPH# 1.16 X1000 (1.2-3.4); LYMPH% 24.8 % (20.5-51.1); MCH 31.3 PG (27-31); MCHC 31.9 g/dL (33-37); MCV 98.3 FL (81-99); MONO# 0.52 X1000 (0.11-0.59); MONO% 11.1 % (1.7-9.3); MPV 12.1 FL (7.4-10.4); NEUT% 58.1 % (42.2-75.2); PLT 195 X1000 (130-400)
[2016-07-11] MEDS: SINEQUAN PO SCH (08:20)
--- NOTE | 2016-07-11 15:25 | PROGRESS NOTE ---
DATE: 07/11/2016 SUBJECTIVE: Patient overall is stable. She is sitting up, eating lunch. Complains of some left upper quadrant discomfort. OBJECTIVE: Vital signs: Afebrile, pulse 81, respirations 17, blood pressure 184/72, O2 saturation on room air 97 to 98%. CV: RRR without distinct murmur. Lungs: CTA. Abdomen: Soft. Active bowel sounds. Mild tenderness in the left upper quadrant. No rebound or guarding. Extremities: No calf tenderness, cords, or edema. Neurologic: Cranial nerves intact. No focal deficits. LAB DATA: Shows white count 4.68, hemoglobin 9.4, stable, platelets 195,000, neutrophils 58, lymphocytes 25. ASSESSMENT: 1. Gastrointestinal bleeding with possible small bowel bleed. 2. MGUS with bone marrow biopsy results still pending. 3. Anemia, multifactorial number. 4. Chronic kidney disease. 5. Chronic obstructive pulmonary disease. 6. Diverticulosis. 7. Gastroesophageal reflux disease. 8. Hypertension. 9. Presbycusis. 10. Hyperlipidemia. 11. Obstructive sleep apnea. 12. Osteoporosis. PLAN: Dr. Biswas plans possible push enteroscopy tomorrow. Still waiting the bone marrow biopsy results. Continue Protonix. cc: MD Aníbal Shields MD
[2016-07-11] MEDS: PROTONIX IV SCH (21:00)
[2016-07-11] MEDS: SODIUM CHLORIDE 0.9% INJ SCH (21:00)
[2016-07-11] MEDS: PRAVACHOL PO SCH (21:37)
--- NOTE | 2016-07-12 09:10 | PROGRESS NOTE ---
DATE: 07/12/2016 SUBJECTIVE: Interval history was reviewed. Patient was seen by Dr. Biswas going for a small-bowel enteroscopy. Heme-positive stools. Bone marrow biopsy was done. Results are pending. Serum free light chain ratio slightly elevated. IgA lambda involvement. 24 hour urine studies are pending. REVIEW OF SYSTEMS: None reported. PHYSICAL EXAMINATION: Vitals: Stable. HEENT: Slightly pale. Neck: Supple. Chest: Clear. Heart: Sounds are regular. Abdomen: Belly is soft, nontender. Good bowel sounds. Neurologic: No neurological deficits. INVESTIGATIONS: White cell count 4.6, hematocrit 29, platelets 195. Ferritin is high, LDH is slightly high. B12, folate normal. Serum lambda free light chains were high. Flow cytometry was pending. ASSESSMENT AND PLAN: 1. Anemia due to occult gastrointestinal bleeding. Going for small-bowel enteroscopy. 2. Anemia/ chronic kidney disease. 3. Monoclonal gammopathy, IgA lambda. Follow up on bone marrow biopsy and 24 hour urine studies. Currently stable and will follow up. cc: Aníbal Lockett MD MTDD
[2016-07-12] MEDS ORDERED: DIPRIVAN 1% ONE (09:38)
[2016-07-12] MEDS ORDERED: XYLOCAINE-MPF 2% ONE (10:07)
[2016-07-12] MEDS ORDERED: LABETALOL (DOSE) ONE (10:07)
[2016-07-12] MEDS ORDERED: LR 1,000 ML ONE (10:07)
[2016-07-12] MEDS: SINEQUAN PO SCH (10:15)
[2016-07-12] MEDS: ULTRACET 37.5MG/325MG PO PRN (10:15)
--- NOTE | 2016-07-12 10:33 | OPERATIVE NOTE ---
PROCEDURE DATE: 07/12/2016 ATTENDING PHYSICIAN: Dr. Lockett. PRIMARY ONCOLOGIST: Dr. Foote. TITLE OF PROCEDURE: Push enteroscopy up to 90 cm from the incisors. PREOPERATIVE DIAGNOSES: 1. Melena. 2. Anemia, required 4 units of blood transfusion in the last 1 week. 3. Likely small bowel bleeding source. 4. In the last 2-3 weeks, she has got about 8 units of blood transfusion for intermittent gastrointestinal bleeding. 5. Negative esophagogastroduodenoscopy and colonoscopy. The colonoscopy only shows old blood up to the terminal intestine. ESTIMATED BLOOD LOSS: None. COMPLICATIONS: None. ANESTHESIA: Monitored anesthesia care per the anesthesiologist. SPECIMEN: None. POSTOPERATIVE DIAGNOSES: 1. Z-line is at 38 cm. 2. Schatzki's ring at gastroesophageal junction, nonobstructing. 3. Hiatal hernia, 1-2 cm, sliding. 4. Mild chronic gastritis in the fundus, cardia, body, antrum. 5. Normal fundus, cardia, incisura. 6. Normal duodenal bulb, 2nd, 3rd, and 4th portion of duodenum. 7. Normal proximal jejunum. 8. No evidence of any fresh or old blood noted in entire push enteroscopy. DESCRIPTION OF PROCEDURE: After informed consent, the patient explained the risks, benefits, indications, and alternatives of the procedure for EGD and push enteroscopy, the patient was brought to the OR. Turned to the left lateral position. A bite block was placed in the patient's mouth. After adequate monitored anesthesia care, the pediatric colonoscope was introduced and advanced all the way to the proximal jejunum. We went up to 90 cm from the incisors. The Z-line visualized at 38 cm. There was evidence of Schatzki's ring at the GE junction, nonobstructing. There was a sliding hiatal hernia, 1-2 cm. The stomach showed evidence of erythema, erosions, chronicity in the body and antrum and fundus and cardia. Otherwise, the retroflexion revealed normal fundus, cardia, incisura. No evidence of any ulcers, bleeding, or fresh or old blood in the entire stomach. The duodenal bulb, 2nd, 3rd, and 4th portion of the duodenum appeared normal. The proximal jejunum we could read as far as 90 cm from incisors. I did not visualize any evidence of any fresh or old blood, or any evidence of any stigmata of bleeding. No AVMs were noted. The air was aspirated, the scope withdrawn. The patient tolerated the procedure and is currently being monitored in the OR in stable condition. I discussed the findings with the patient and her daughter by phone. All questions were answered. RECOMMENDATIONS: 1. The patient will need an outpatient video capsule endoscopy by Dr. Phelps on discharge. 2. Patient will be given Iron C b.i.d. 3. We will start patient on GI soft diet. 4. Patient will be on Protonix once daily for now. 5. If video capsule shows evidence of bleeding or a potential lesion, then we may have to refer to [facility] for double balloon enteroscopy. Dr. Foote is working on the diagnosis of monoclonal gammopathy of uncertain significance. Bone marrow biopsy is currently pending. The above plan was discussed with the patient and family (Daughter) and all questions were answered. We will follow along. cc: MD Aníbal Agosto MD Naveen T. Lobo, MD MTDD
--- NOTE | 2016-07-12 12:54 | PROGRESS NOTE ---
DATE: 07/12/2016 SUBJECTIVE: The patient is in her room after recent push enteroscopy. She is feeling quite depressed and is feeling hopeless as far as determining the cause of her bleeding. She is very afraid of any operation, and at this point, quite resistant to it. OBJECTIVE: She is afebrile. Vital signs are stable.General: She is alert and oriented x 4. No acute distress. Gastrointestinal: Soft, nontender, nondistended. No organomegaly or mass. LABORATORY: Hemoglobin 9.4, hematocrit 29. ASSESSMENT/PLAN: This is an 80-year-old female with occult GI bleeding likely distal small bowel source. I had a long conversation with her discussing her options. In fact, I think she is interested in continuing with further investigation to determine the source with outpatient video capsule endoscopy as well as double balloon enteroscopy because she would be interested in a curative surgery if a pathologic lesion next could be cured is found. I gave her my office number and I would be available to help if that point is reached. cc: MD Aníbal Rosales MD
[2016-07-12 16:08] LABS: UR CREATININE 33.2 mg/dL (11-20); UR PROTEIN 5.5 mg/dL
[2016-07-12 16:45] LABS: UR CREATININE TOTAL 630.8 mg/24 (600-1600)
[2016-07-12] MEDS: PROTONIX IV SCH (20:14)
[2016-07-12] MEDS: ICAR-C PO SCH (20:14)
[2016-07-12] MEDS: SODIUM CHLORIDE 0.9% INJ SCH (20:14)
[2016-07-12] MEDS: PRAVACHOL PO SCH (20:14)
[2016-07-12] MEDS ORDERED: ICAR-C PO SCH (21:00)
[2016-07-13 08:14] LABS: MANUAL DIFF NEEDED? NO
[2016-07-13 08:31] LABS: BASO% 2.4 % (0.0-0.8); EOS# 0.25 X1000 (0.0-0.7); EOS% 5.5 % (0.0-10.0); HEMATOCRIT 32.9 % (37.0-47.0); HEMOGLOBIN 10.4 g/dL (12.0-16.0); LYMPH# 1.72 X1000 (1.2-3.4); LYMPH% 37.9 % (20.5-51.1); MCH 31.6 PG (27-31); MCHC 31.6 g/dL (33-37); MONO# 0.52 X1000 (0.11-0.59); MONO% 11.5 % (1.7-9.3); MPV 11.8 FL (7.4-10.4); NEUT% 42.7 % (42.2-75.2); PLT 219 X1000 (130-400); RBC 3.29 XMIL (4.2-5.4)
[2016-07-13] MEDS: SINEQUAN PO SCH (09:55)
[2016-07-13] MEDS: ICAR-C PO SCH ×2 (09:58→21:49)
[2016-07-13] MEDS: PRAVACHOL PO SCH (21:49)
[2016-07-13] MEDS: SODIUM CHLORIDE 0.9% INJ SCH (21:49)
[2016-07-13] MEDS: PROTONIX IV SCH (21:49)
--- NOTE | 2016-07-13 22:14 | PROGRESS NOTE ---
DATE: 07/13/2016 SUBJECTIVE: Patient is doing very well. More alert, not offering complaints. LAB: CBC: White cell count 4.5, hematocrit 32 platelets 219,000. Creatinine is 1.2 and 24 hour urine negative for Bence-Corbin protein. Flow cytometry was pending. Bone marrow biopsy was pending. EXAMINATION: Vital signs: Stable. General: Patient is not significantly orthostatic, slightly pale. Chest: Clear. Heart: Sounds are regular. Belly: Soft, nontender. Good bowel sounds. No masses palpable. Extremities: No peripheral edema, cyanosis , clubbing. Neurologic: Nonfocal. ASSESSMENT AND PLAN: 1. Anemia with occult gastrointestinal bleeding. Will schedule outpatient capsule endoscopy. Hematocrit was stable. No signs of active bleeding and continue Icar-C Plus p.o. BID 2. Chronic anxiety on SSRI and Klonopin. 3. Hyperlipidemia on pravastatin. 4. Chronic pain. 5. Osteoarthritis on Ultracet and if is stable hemodynamics will restart the blood pressure medicine. 6. IgA lambda monoclonal protein. MGUS. Will discuss with Dr. Centeno about bone marrow biopsy report and flow cytometry and discussed with the patient daughter yesterday on the telephone and will follow up. cc: Aníbal Lockett MD MTDD
[2016-07-14 06:35] LABS: MANUAL DIFF NEEDED? NO
[2016-07-14 06:47] LABS: BASO% 2.1 % (0.0-0.8); EOS# 0.34 X1000 (0.0-0.7); EOS% 9.1 % (0.0-10.0); HEMATOCRIT 30.1 % (37.0-47.0); HEMOGLOBIN 9.5 g/dL (12.0-16.0); LYMPH# 1.26 X1000 (1.2-3.4); LYMPH% 33.6 % (20.5-51.1); MCH 31.8 PG (27-31); MCHC 31.6 g/dL (33-37); MCV 100.7 FL (81-99); MONO# 0.45 X1000 (0.11-0.59); MPV 12.2 FL (7.4-10.4); NEUT% 43.2 % (42.2-75.2); PLT 194 X1000 (130-400); RBC 2.99 XMIL (4.2-5.4)
[2016-07-14] MEDS: ICAR-C PO SCH (08:36)
[2016-07-14] MEDS: SINEQUAN PO SCH (08:36)
[2016-07-14 09:37] VITALS: BP 174/73
--- NOTE | 2016-07-14 22:30 | DISCHARGE SUMMARY ---
ADMISSION DATE: 07/05/2016 DISCHARGE DATE: 07/14/2016 DISCHARGING DIAGNOSIS: Symptomatic anemia due to occult gastrointestinal bleeding, presumed to a small-bowel source. SECONDARY DIAGNOSIS: 1. 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 2. Chronic kidney disease. 3. Chronic obstructive pulmonary disease. 4. Diverticulosis. 5. Acid reflux disease. 6. Hearing loss. 7. Hypertension. 8. Hyperlipidemia. 9. Sleep apnea. 10. Osteoporosis. CONSULTANTS: 1. Dr. Eric Harden/Dr. Braeden Felipe. 2. Dr. Vance Biswas. 3. Dr. Aleksandr De Oliveira. 4. Narayan Foote MD. PROCEDURES: 1. Bleeding scan is negative. 2. Small bowel enteroscopy was negative. 3. Soft bone marrow biopsy by Dr. Aleksandr De Oliveira, no significant myeloma detected. OTHER PROCEDURES: 1. SPEP was positive for IgG lambda monoclonal protein, the levels 0.3 g/dL. 2. 24 hour urine is negative for Bence-Corbin proteinuria. 3. Serum free light chain ratio slightly elevated and index was normal. 4. Patient did receive 3 units of packed RBCs. BRIEF HISTORY: Please see the H and P that was done on 07/05/2016. In brief, she is an 80-year- old pleasant white female who was readmitted to the hospital with symptomatic anemia, heme- positive stools. Hematocrit was dwindled to 18. She was unable to do any activities. The patient had multiple gastrointestinal workup which was negative. The source of the bleeding primarily small bowel. HOSPITAL COURSE: She was given of 3 units of packed RBC iron infusion. She has heme-positive stools. She also has a chronic kidney disease and SPEP was positive for monoclonal gammopathy of unknown significance. It showed IgA lambda paraprotein. At this time, there is no at the clinical evidence of overt multiple myeloma based on the bone marrow biopsy and 24 hour urine studies. We will continue to monitor the levels of IgA paraprotein light chains every [address] Foote. She also had a bone marrow biopsy done. As a part of the GI bleeding, the source of the bleeding most likely small bowl. Bleeding scan was negative. A small-bowel enteroscopy was negative in the upper part of the small bowel. I am going to arrange outpatient capsule endoscopy by Dr. Phelps. At the time of discharge, labs as follows: CBC: White cell count 3.7, hematocrit 30, platelets 194,000. 24 hour urine protein is 105. SMA7: Sodium 143, potassium 3.8, chloride 113, anion gap is normal. BUN 40. Creatinine 1.3. Calcium 7.5. Iron is low. Vitamin B12, folate was normal. Free [place] lambda chain ratio 0.13, lambda free light chain slightly elevated. DISCHARGE INSTRUCTIONS ARE FOLLOWS: Tdap 06/24/2015. Lisinopril 40 mg daily, Icar C Plus 1 tablet daily. Fenofibrate 145 daily. Ultracet as needed for pain. Cardizem 240 daily. Evista 60 daily. Pravachol 40 daily. Protonix 40 daily. Klonopin 0.5 daily. Doxepin 50 daily. Follow up in my office next week. Arrange outpatient capsule endoscopy through Dr. Phelps. cc: MD Vance Juarez MD Thomas P. Short, MD Robert C. Walker, MD Jason R. Seale, MD Naveen T. Lobo, MD
== END 2016-07-14 10:33 | disposition home or self-care (01) ==
PROVIDERS: ADMIT Internal Medicine; ATTEND Internal Medicine